=== PATIENT | female | born 1960 | race Caucasian/White ===

== ENCOUNTER 2025-03-12 18:36 | Inpatient (IN) | payer OTHER, SELFPAY ==
[2025-03-12 18:46] VITALS: BP 105/57; BMI 44.8
[2025-03-12 20:10] VITALS: BMI 44.8
--- NOTE | 2025-03-12 20:11 | HPS.HSE ---
Addendum entered and electronically signed by Omar Oglesby MD 03/13/25 08:09:
I saw and examined the patient.
The SLEEP TECH or PA's note was reviewed and I agree with the note.
Comment:
64F TF from [facility] s/p Cath found to have multi vessel CAD: Consult CTS and CBC card for CABG
PMHX:
HX Coronary Artery Disease
Combined Systolic and Diastolic Heart Failure
Diabetes Mellitus, Type II
Essential Hypertension
Hyperlipidemia
Pulmonary Embolism
Obstructive Sleep Apnea
Morbid Obesity due to Excess Calories
Breast Cancer
PE:
Morbidly obese
NAD
Supple neck, no JVD
Clear to auscultation
RRR S1 S2 No mumur
Obese benign abdo
B/L LE Edema
Impression/Plan
-
MV CAD s/p cardiac cath at OSH
-Consult CTS and CBC card to eval for CABG
Acute Combined Systolic and Diastolic Heart Failure
-Consult Cardiology
-Continue Lasix and Metolazone
-Continue Entresto
E. coli Urinary Tract Infection
-c/w [employer] IV CFTZ
Hepatitis C Screen Positive
- obtain RNA results from [facility]
Diabetes Mellitus, Type II
-Hold OHG agents
- Check HgbA1c
- ISS
Essential Hypertension
- on metoprolol
Hyperlipidemia
- on atorvastatin
Anemia, patient reports chronic
-Patient received dose of IV Venofer at [facility]
-Continue vitamin b12 supplement
MONICA HX
-reports non-compliance with CPAP
Morbid Obesity due to Excess Calories
Hx Pulmonary Embolism, possible provoked in setting of breast cancer
-Patient reports stopping Xarelto on her own in 2019
Hx Breast Cancer s/p Bilateral Mastectomy 2011
DVT Px: SQH
Fullcode
IVU
Original Note:
Family Physician
-
Family Physician: Huyen Barnett
Chief Complaint
-
Multivessel CAD
History of Present Illness
Patient is a 64 y/o female past medical history of hypertension and diabetes mellitus who initially presented to [facility] on March 09 with shortness of breath. Patient was found new acute heart failure. Patient had echocardiogram
which revealed reduced EF. Today she underwent cardiac catheterization which revealed multivessel coronary artery disease. She was transferred to [facility] for CT surgery evaluation. Patient reports at this time her shortness of breath
is improving, but she continues with lower extremity edema. She denies any chest pain.
Reviewed of records from [facility] also indicated patient was seen by Hematology due to profound anemia which was felt to multifactorial related to iron and vitamin b12 deficiency following gastric bypass. Patient was also evaluated by
Gastroenterology due to elevated LFTs. It was felt this was most likely related to hepatic congestion due to heart failure however patient's Hepatitis C screen was noted to be positive; Hepatitic C RNA was still pending at transfer. Patient was also
found to have a urinary tract infection for which she has been receiving ceftriaxone.
Medical History
Past Medical History
Past Medical History: Reports Other
Additional Past Medical History:
Coronary Artery Disease
Combined Systolic and Diastolic Heart Failure
Diabetes Mellitus, Type II
Essential Hypertension
Hyperlipidemia
Pulmonary Embolism
Obstructive Sleep Apnea
Morbid Obesity due to Excess Calories
Breast Cancer
Past Surgical History: Reports Other
Additional Past Surgical History:
Bilateral Mastectomy - 2011
Gastric Bypass - 2004
Social History
Tobacco: Former Smoker (Quit in 1991)
Alcohol: Other (Patient reports bouts of alcohol abuse, but no alcohol since 2020)
Family History
Family History: Other (Mother: Diabetes, CAD)
Allergies / Home Medications
Allergies reflects when Allergies were last updated in [employer].
Home Medications with original date entered in [employer]
Allergy/Medication List:
Medications on admission are unable to be verified or confirmed at this time.
If medication reconciliation has not been performed, why?: Medication List N/A
Review of Systems
-
A 12 point ROS was completed and negative except as noted: Yes
Constitutional: Denies Fever
Respiratory: Reports Trouble Breathing; Denies Cough
Cardiac: Denies Chest Pain or Palpitations
Physical Exam
Vital Signs
Selected Entries
03/12/25
18:46 03/12/25
18:46 03/12/25
21:00
Temp 98.2 F
Pulse 94
Resp Rate 18
Blood pressure 105/57
SaO2 100
Physical Exam
General: Comfortable, Conversant and Morbidly Obese
HEENT: Anicteric, Moist mucous membranes and Other (Very poor dentition)
Respiratory: Clear, Non Labored Respirations and Decreased Breath Sounds (Left base); No Rales
Cardiac: S1/S2 and Regular Rhythm; No Murmur
GI: Soft and Non Tender
Rectal: Deferred by Provider
Musculoskeletal: No Clubbing, No Cyanosis and Other (Pitting edema bilateral lower extremities)
Skin: Warm and Dry
Neuro: Awake, Alert, Oriented and Nonfocal/grossly intact
Psych: Calm
Laboratory Results
-
WBC 5.3
Hgb 8.6
Hct 28.4
Plt 305
Na 136
K 4.8
Vl 101
CO2 30
BUN 14
Cr 0.78
Glu 113
Cardiac Catheterization Mar 12, 2025: Severe triple vessel coronary artery disease with left anterior descending involvement.
Echocardiogram Mar 10, 2025: Moderate to severely dilated left atrium. Left ventricular size is mildly dilated. Grade II diastolic dysfunction. Left ventricular systolic function is moderately reduced with EF 35%.
Data Reviewed
-
Medical Tests (Nuc Med, Echo, EKG etc): Other (Echo, and Cardiac Cath reports)
Lab Data: Labs Reviewed by me
Old Records: Reviewed
Impression/Plan
-
Multivessel Coronary Artery Disease
-Consult CT Surgery
-Continue aspirin
Acute Combined Systolic and Diastolic Heart Failure
-Consult Cardiology
-Continue Lasix and Metolazone
-Continue Entresto
-Monitor Daily Weights
E. coli Urinary Tract Infection
-Continue ceftriaxone
Hepatitis C Screen Positive
-Attempt to obtain RNA results from [facility]
Diabetes Mellitus, Type II
-Hold oral meds
-Check HgbA1c
-Consider starting Farxiga
-Monitor sugars and continue coverage insulin
Essential Hypertension
-Continue metoprolol
Hyperlipidemia
-Continue atorvastatin
Anemia, patient reports chronic
-Patient received dose of IV Venofer at [facility]
-Continue vitamin b12 supplement
Obstructive Sleep Apnea
-Patient reports non-compliance with CPAP - Will need outpatient evaluation
Morbid Obesity due to Excess Calories
-Affects all aspects of care
Hx Pulmonary Embolism, possible provoked in setting of breast cancer
-Patient reports stopping Xarelto on her own in 2019
Hx Breast Cancer s/p Bilateral Mastectomy 2011
DVT proph: SC Heparin
Code Status: Full Code
[2025-03-12 20:59] LABS: Glucose - Point of Care 165 mg/dl (70-99)
[2025-03-12] MEDS: ROCEPHIN 1000 MG IV (22:20)
[2025-03-12] MEDS: STERILE WATER FOR INJECTION 10 ML IV (22:20)
[2025-03-12 22:59] VITALS: BP 128/58
[2025-03-12 23:03] LABS: Glucose - Point of Care 220 mg/dl (70-99)
[2025-03-13] VITALS (9 sets, daily range): BP systolic 119–153; BP diastolic 59–107; BMI 44.4
[2025-03-13] MEDS: HEPARIN 5000 UNITS SC ×4 (00:31→23:00)
[2025-03-13 04:59] LABS: ALT (SGPT) 26 U/L (0-35); AST (SGOT) 23 U/L (14-36); Albumin 2.7 g/dl (3.5-5.0); Alkaline Phosphatase 266 U/L (38-126); Blood Urea Nitrogen 15 mg/dl (7-17); Calcium 7.3 mg/dl (8.4-10.2); Carbon Dioxide 30 mmol/L (22-30); Chloride 100 mmol/L (98-107); Estimated Creatinine Clearance 101 ml/min; Glucose 125 mg/dl (70-99); HDL Cholesterol 32 mg/dl; Iron 239 ug/dl (37-170); LDL Cholesterol, Calculated 118 mg/dl; Magnesium 1.6 mg/dl (1.6-2.3); Potassium 4.6 mmol/L (3.5-5.1); Sodium 132 mmol/L (135-145); Total Protein 6.1 g/dl (6.3-8.2); Very Low Density Lipoprotein 26 mg/dl (0-30); eGFR > 60.00
[2025-03-13 05:01] LABS: Hematocrit 26.8 % (37.0-47.0); Hemoglobin 8.0 g/dL (12.0-16.0); Mean Corp Hgb Conc. 29.9 g/dL (33.0-37.0); Mean Corpuscular Volume 73.0 fL (81.0-99.0); Platelet Count 302 10^3/uL (130-400); Red Cell Dist. Width 25.6 % (11.5-14.5)
[2025-03-13 05:08] LABS: Total Iron Binding Capacity 276 ug/dl (265-497)
--- NOTE | 2025-03-13 05:39 | PTCARENOTE ---
Pt NSR on monitor, VSS. Pt denies chest pain or any discomfort. Pt ambulates independently. CHF education provided. Pt instructed to use call pérez for help and when needs to ambulate. Call pérez within reach
[2025-03-13 05:48] LABS: Ferritin 62.4 ng/ml (11.1-264.0)
[2025-03-13 06:19] LABS: Folate 7.8 ng/ml (2.76-20); Vitamin B12 447 pg/ml (239-931)
[2025-03-13 07:42] LABS: Glucose - Point of Care 132 mg/dl (70-99)
[2025-03-13 07:57] LABS: Glycohemoglobin (HgbA1c) 6.4 % (4.0-5.9)
--- NOTE | 2025-03-13 08:31 | CON.CAR ---
Addendum entered and electronically signed by Red Julien MD 03/13/25 13:49:
I saw and evaluated the patient, and I provided the substantive portion of the medical decision making.
I reviewed and agree with the note by KANWAL Dominguez and it accurately reflects our care.
I personally performed the medical decision making of the this encounter and my assessment and plan is below:
HFrEF, now compensated, normal PA pressure, normal RA pressure, normal PCWP at cath
Ischemic cardiomyopathy with moderate LV systolic dysfunction
Severe 3 V CAD wtih prox LAD involvement
DM
Anemia
Prior gastric surgery for obesity, peak weight over 400 pounds
Hgb 8, HgbA1c 6.4, Cr 0.7
Echo here today: LV dilated, LVEF 30-35%, valves ok
EKG ordered
Agree with plans for CABG evaluation
Original Note:
Consultation
Consultation Request
Date/Time Consultation Requested: 03/12/2025 22:00
Date/Time Consultation Performed: 03/13/2025 08:30
Requesting Provider: Alyssa Landa PA-C
Performing Provider: KANWAL Dominguez for Dr. Julien
Reason for Consultation: Acute HFrEF, MV CAD
Medical History
-
Chief Complaint: Shortness of breath
History of Present Illness:
Trish Chavarria is a 64-year-old female with breast cancer status post bilateral mastectomy (2011), hypertension, type 2 diabetes mellitus, and former smoker who presented to [facility] on 03/09/2025 with a chief complaint of shortness of
breath. She was diagnosed with acute heart failure. This was a new diagnosis for her. Echocardiogram revealed reduced LVEF (35%). Diuresis was initiated. This prompted cardiac catheterization which revealed multivessel coronary artery disease.
She was transferred to [facility] for CT surgery evaluation. She currently denies chest pain and improving shortness of breath.
During her hospitalization at [facility], she was also seen by hematology due to anemia. This was found to be in the setting of iron and B12 deficiency status post gastric bypass. Her elevated LFTs were evaluated by the GI service. This was related to
hepatic congestion in the setting of acute heart failure. Her hep C screen was found to be positive. Her hospitalization was also notable for treatment of a UTI.
Past Medical History
Past Medical History: CAD (MV CAD), Cancer (Breast), CHF (HFrEF), HTN, Hypercholesterolemia, NIDDM and Other (MONICA, PE)
Past Surgical History: Other (Gastric bypass, bilateral mastectomy)
Social History
Tobacco: Former Smoker
Alcohol: Former (Sober since 2020)
Family History
Family History: Other (Both parents due to CVAs)
Allergies / Home Medications
Allergy/AdvReac Type Severity Reaction Status Date / Time
strawberry Allergy Rash Verified 03/12/25 20:52
Review of Systems
-
All other systems: Negative unless noted
Constitutional: No Symptoms
EENT: No Symptoms
Respiratory: No Symptoms
Cardiac: No Symptoms
Abdomen/GI: No Symptoms
: No Symptoms
Musculoskeletal: Edema
Skin: No Symptoms
Neurological: No Symptoms
Endocrine: No Symptoms
Hematologic/Lymphatic: No Symptoms
Physical Exam
Vital Signs
Temp Pulse Resp BP Pulse Ox
98.3 F 89 18 128/58 100
03/13/25 07:40 03/13/25 07:40 03/13/25 07:40 03/12/25 22:59 03/13/25 07:40
Lab Results
03/13/25 04:28
03/13/25 04:22
Physical Exam
General: Well Developed, Well Nourished, No Apparent Distress and Comfortable
HEENT: Normocephalic, Anicteric and Moist Mucous Membranes
Respiratory: Clear and Non Labored Respirations
Cardiac: S1/S2, Regular Rhythm and Peripheral Edema
Breast: Deferred by me
GI: Soft, Non Tender, Non Distended and Normal Bowel Sounds
Rectal: Deferred by Provider
Genito-urinary: No Costovertebral Tender
Musculoskeletal: No Clubbing and No Cyanosis
Skin: Warm and Dry
Neuro: AO x 3
Hematologic/Lymphatic: No Lymphadenopathy
Psych: Calm
Impression / Plan
-
I/P: 64F with breast cancer status post bilateral mastectomy (2011), hypertension, type 2 diabetes mellitus, and former smoker who presented to [facility] on 03/09/2025 with a chief complaint of shortness of breath -> new HFrEF -> cardiac
catheterization with multivessel CAD.
Primary market research specialist:
HFrEF (LVEF 35%), acute
Ischemic cardiomyopathy
- RHC with wedge consistent with compensated HF, this is likely her dry weight (117kg)
- Transition to oral diuretic and stop metolazone
- GDMT as tolerated:
-SOL/ARB/ARNI: Sacubitril�valsartan 24-[address] surgery evaluation
-SGLT2 inhibitor: Case management to carvalho, hold with CT surgery evaluation
-Aldosterone agonist: Consider the addition of spironolactone after CT surgery evaluation
-Beta jonathan: Metoprolol succinate 25 mg daily
-Isosorbide/Hydralazine:�Hold for now
-ICD:
- Trend daily weight, I/O, and BMP with diuresis
- Heart failure education during her hospitalization
Bilateral lower extremity edema
- Compensated based on RHC
- Perhaps an element of chronic venous insufficiency, she would benefit from bilateral lower extremity compression
Coronary artery disease, multivessel
- Reports cardiac catheterization in the without disease
- Chest pain-free
- CT surgery evaluation
- TC 176, LDL 118, HDL 32, TG 130, she was started on atorvastatin 80 mg, goal LDL <55
UTI, acute, on IV antibiotics, per primary service
Type 2 diabetes mellitus
- Controlled, HgbA1c 6.4%
Obesity, BMI 44
- She would benefit from weight loss, affects all aspects of care
- Prior gastric bypass (2004)
- Consider the addition of GLP-1
Anemia
- In the setting of depleted iron stores (received Venofer) and B12 deficiency
- Evaluated by hematology at [facility]
Dyslipidemia, as above
MONICA with CPAP noncompliance
Prior PE, unclear provoked versus unprovoked as she had breast cancer, self discontinued rivaroxaban in 2019
Breast cancer status post bilateral mastectomy 2011
DATA:
Transthoracic echocardiogram, 03/12/2025 ([facility])
LVEF 35%. LA is moderate to severely dilated. RA is mildly dilated.
No mitral stenosis. Mild mitral regurgitation.
Trivial to mild TR.
Aortic valve is suboptimally visualized but is likely trileaflet.
Physiologic pericardial effusion.
Cardiac catheterization, 03/12/2025 ([facility], Dr. Holley):
Severe triple-vessel CAD with pLAD involvement in a diabetic patient with moderate to severely depressed LVEF.
Ideally target should include LAD, major diagonal branch, large inferior lateral marginal branch, and right coronary PDA.
Data Reviewed
-
EKG: Report Reviewed by me
Medical Tests (Nuc Med, Echo etc): Report Reviewed by me
Labs: Labs Reviewed by me
Old Records: Reviewed
[2025-03-13] MEDS: NOVOLOG FLEXPEN-LOW RESISTANCE SC ×2 (08:34→12:52)
[2025-03-13] MEDS: KCL 20 MEQ PO ×2 (08:39→20:37)
[2025-03-13] MEDS: LASIX 40 MG IV (08:39)
[2025-03-13] MEDS: ZAROXOLYN 5 MG PO (08:39)
[2025-03-13] MEDS: TOPROL XL 25 MG PO (08:39)
[2025-03-13] MEDS: VITAMIN B-12 1000 MCG PO (08:39)
[2025-03-13] MEDS: ASPIR LOW (ENTERIC COATED) 81 MG PO (08:39)
[2025-03-13] MEDS: COLACE 100 MG PO (08:39)
[2025-03-13] MEDS: VENTOLIN NEBULES 2.5 MG INH (11:38)
--- NOTE | 2025-03-13 11:58 | PTCARENOTE ---
Pt is AOx3, no complaints of pain or discomfort. Pt went for US and ct scan this AM. SR on tele monitor, VSS. Call pérez within reach.
[2025-03-13 12:47] LABS: Glucose - Point of Care 129 mg/dl (70-99)
--- NOTE | 2025-03-13 13:03 | CONSULT.CT ---
Addendum entered and electronically signed by Lorelei Trejo MD 03/14/25 21:30:
I have seen and evaluated the patient, agree with documentation below.
Ms. Chavarria is a 64 yo female with significant history of morbid obesity s/p RNY gastric bypass (failed), DM which she has not been on medications for, HTN (not taking medications), CKD and MONICA who is presenting with significant SOB and fatigue. LHC
was perfored at [facility] which is notable for severe multivessel CAD and acute on chronic HF exascerbation. She was admitted for HF exacerbation and treated with diuresis with reported 10L off. She additionally is noted to have significant anemia without
history of GI bleed, thought to potentially be related to RNY with deficiencies. She is sent over for CABG evaluation. Further workup here reveals significantly decreased PFTs specifically DLCO, Pulmonary has evaluated and determined this is all
related to her habitus and MONICA without any intrinsic pulmonary disease or dysfunction that could be further optimized. I have reviewed her LHC and agree there is significant disease throughout with TEAMCENTER SOLUTION ARCHITECT of RCA that is well collateralized and
significant LAD, diagonal and circumflex disease. TTE performed here notes decreased EF at 30% with global hypokinesis and normal valves. She remains significantly edematous in her BLE and has BNP here that is 19,000 (reportedly only 2,000 at [facility]).
She is chest pain free at this time. I am not clear that her symptoms are stemming from her CAD given other multiple potential causes of SOB and fatigue including the acute untreated HF, significant pulmonary dysfunction and chronic anemia. Her STS
risk for CABG is elevated given her multiple comorbidites and I believe she carries significant risk from a pulmonary standpoint. I would like to better optimize her from HF standpoint with more aggresive diureses (Lasix gtt) with Dozier catheter
placement for close monitoring. I will have my partner(s) review her case so that we may offer best treatment strategy given the increased operative risk and somewhat nonspecific symptoms as her SOB and fatigue may be related to one of her other
current conditions. We will continue to monitor closely and continue having ongoing discussions with the patient as we reach a shared decision.
Original Note:
Consultation
-
Date/Time Consultation Requested: 03/12/25
Date/Time Consultation Performed: 03/13/25
Requesting Provider: Alyssa Landa PA-C
Performing Provider: KANWAL Brown for Dr. Lorelei Trejo
Reason for Consultation: CABG Evaluation
Patient History
Physicians
Family Physician: none
Outpatient Associate Professor Of Criminal Justice: none
Inpatient Associate Professor Of Criminal Justice: [facility]
History of Present Illness
Ms Trish Chavarria is 64 year-old female with a known PMHx of breast ca s/p B/L mastectomy without chemo/radiation (2011), HTN, CKD, MONICA, T2DM (A1C 6.4%), provoked, PE (2011 previously on Xarelto, stopped on own in 2019), ETOH misuse (denied since
2020), Former tobacco use (from age 8 to ~), and gastric bypass (2011) who has lost follow-up with her primary medical team since 2019 and presented to [facility] on 03/09/25 with complaints of progressive shortness of breath.
Upon evaluation at [facility], TTE showed new HFrEF (35%) with pro-BNP of 2190. She was diuresed with lasix and metolazone and recommended to be initiated on Entresto. She underwent a C showing multi-vessel CAD in which she was transferred for CABG
evaluation. Prior to her transfer from [facility], she was found to be anemic and was given IV Venofer and initiated on B12 supplementation at [facility]. GI was consulted for elevated LFT's in which she obtained a hepatic US which showed hepatic congestion
secondary to acute HF. She was further found to have E.Coli UTI and initiated on antibiotics.
Ms Chavarria reports that she lives at home with her spouse. She is currently independent with her ADL's but has limitations due to her dyspnea. She reports that over the last few weeks, she has been unable to walk or grocery shop secondary to
shortness of breath that will alleviate at rest. She further reports bilateral lower extremity edema and avoidance of physical exertion (carrying laundry basket) to avoid onset of symptoms.
Past Medical History
Past Medical History: CHF, RUSHING, HTN, NIDDM, MONICA, Renal Failure and SOB
Past Surgical History
Past Surgical History: Abdominal (Gastric Bypass 2011) and Mastectomy (Bilateral)
Dental History
Edentulous.
Social History
Alcohol: Former
Drug: None
Tobacco: Former Smoker
Personal:
Living: With Spouse
Allergies
Allergy/AdvReac Type Severity Reaction Status Date / Time
strawberry Allergy Rash Verified 03/12/25 20:52
Review of Systems
-
History Source: Patient
General: Reports No Symptoms
HEENT: Reports No Symptoms
Respiratory: Reports SOB
Cardiac: Reports Edema
Abdomen/GI: Reports Abdominal Pain
: Reports No Symptoms
Musculoskeletal: Reports Edema
Skin: Reports No Symptoms
Neurological: Reports No Symptoms
Physical Exam
Vital Signs
Temp 98.2 F 03/13/25 11:19
Temp route: Oral 03/13/25 11:19
Pulse 89 03/13/25 12:45
Rhythm: Normal sinus rhythm 03/13/25 09:41
Resp Rate 18 03/13/25 11:38
Blood pressure 123/67 03/13/25 11:27
Blood pressure extremity used: Right calf 03/13/25 11:19
Position: Lying 03/13/25 11:19
MAP (cuff-Johnathan Monitor) 84 03/13/25 11:27
SaO2 99 03/13/25 11:19
Oxygen Mode of Delivery Room air 03/13/25 11:19
Can the patient verbally communicate their pain? Yes 03/12/25 22:06
Actual Weight 117.2 kg 03/13/25 04:58
Body Mass Index (BMI) 44.4 03/13/25 04:58
Labs
03/13/25 04:28
03/13/25 04:22
Hemoglobin A1c 6.4 % (4.0-5.9) H 03/13/25 04:28
Exam
General: Well Developed, Well Nourished and Comfortable
HEENT: Normocephalic, Moist Mucous Membranes and PERRLA
Respiratory: Clear
Cardiac: S1/S2 and Regular Rhythm
GI: Soft, Non Tender and Normal Bowel Sounds
Skin: Warm and Dry
Neuro: Awake, Alert, Oriented and AO x 3
Extremities: Lower Level Edema
Psych: Calm
Assessment / Plan
-
#Multivessel Coronary Artery Disease
- Cardiac cath report received from [facility]. Awaiting Cardiac Coarse Wire Drawer films.
- Patient's case will be discussed with the attending physician. Further details regarding potential surgical intervention will be determined after attending physicians full examination.
- Routine preoperative cardiothoracic surgery orders initiated, including:
- T&S
- Cerebrovascular US
- B/L Vein Mapping
- CT Chest
- TTE
- PFT's with DLCO
- STS Risk stratification score will be calculated after preoperative testing is complete.
- Continue to hold following medications in anticipation for surgery:
- Entresto (placed on hold 03/12/25)
--- NOTE | 2025-03-13 14:21 | W.PN.UPDATE ---
Update Note
Progress Note Update
Unable to evaluate patient today
Patient was down in CT scan in the morning
attempted to see the patient again and currently patient down getting pulmonary function test
Discussed with RN and no medical complaints reported by patient
Will evaluate patient tomorrow in the morning
[2025-03-13 15:23] LABS: Troponin I 0.019 ng/ml
[2025-03-13 16:56] LABS: Glucose - Point of Care 158 mg/dl (70-99)
[2025-03-13] MEDS: LIPITOR 80 MG PO (17:10)
[2025-03-13] MEDS: NOVOLOG FLEXPEN-LOW RESISTANCE 1 UNITS SC (17:57)
[2025-03-13] MEDS: COLACE PO (20:37)
[2025-03-13 22:52] LABS: Glucose - Point of Care 123 mg/dl (70-99)
[2025-03-13] MEDS: STERILE WATER FOR INJECTION 10 ML IV (23:00)
[2025-03-13] MEDS: ROCEPHIN 1000 MG IV (23:00)
[2025-03-14] VITALS (7 sets, daily range): BP systolic 109–147; BP diastolic 56–108; BMI 43.5
[2025-03-14 05:20] LABS: INR 1.06; PT 14.1 Sec (11.4-14.6)
[2025-03-14 05:21] LABS: APTT 29.4 Sec (23.4-35.0)
[2025-03-14 05:29] LABS: ALT (SGPT) 26 U/L (0-35); AST (SGOT) 26 U/L (14-36); Albumin 3.0 g/dl (3.5-5.0); Alkaline Phosphatase 270 U/L (38-126); Blood Urea Nitrogen 13 mg/dl (7-17); Calcium 7.0 mg/dl (8.4-10.2); Carbon Dioxide 27 mmol/L (22-30); Chloride 101 mmol/L (98-107); Estimated Creatinine Clearance 101 ml/min; Glucose 110 mg/dl (70-99); Potassium 4.0 mmol/L (3.5-5.1); Sodium 132 mmol/L (135-145); Total Protein 6.7 g/dl (6.3-8.2); eGFR > 60.00
[2025-03-14 05:57] LABS: Hematocrit 28.8 % (37.0-47.0); Hemoglobin 8.4 g/dL (12.0-16.0); Mean Corp Hgb Conc. 29.2 g/dL (33.0-37.0); Mean Corpuscular Volume 75.0 fL (81.0-99.0); Platelet Count 377 10^3/uL (130-400); Red Cell Dist. Width 25.6 % (11.5-14.5)
[2025-03-14] MEDS: NOVOLOG FLEXPEN-LOW RESISTANCE SC ×3 (08:42→17:00)
[2025-03-14 08:43] LABS: Glucose - Point of Care 134 mg/dl (70-99)
[2025-03-14] MEDS: COLACE PO ×2 (08:43→19:28)
[2025-03-14] MEDS: LASIX 40 MG PO (08:44)
[2025-03-14] MEDS: KCL 20 MEQ PO ×2 (08:44→19:28)
[2025-03-14] MEDS: ASPIR LOW (ENTERIC COATED) 81 MG PO (08:44)
[2025-03-14] MEDS: VITAMIN B-12 1000 MCG PO (08:44)
[2025-03-14] MEDS: TOPROL XL 25 MG PO (08:44)
[2025-03-14] MEDS: HEPARIN 5000 UNITS SC ×2 (08:44→16:20)
--- NOTE | 2025-03-14 09:21 | W.PN.CD ---
Today's Communication / Plan
-
CABG eval
Impression / Plan
-
I/P: 64F with breast cancer status post bilateral mastectomy (2011), hypertension, type 2 diabetes mellitus, and former smoker who presented to [facility] on 03/09/2025 with a chief complaint of shortness of breath -> new HFrEF -> cardiac
catheterization with multivessel CAD.
Primary copy operator: [facility]
HFrEF (LVEF 30-35%), acute, improved s/p IV lasix
Ischemic cardiomyopathy without significant valve disease
- RHC with wedge consistent with compensated HF, likely at her dry weight, currently 115 kg
- lasix 40mg PO daily
- GDMT as tolerated:
-SOL/ARB/ARNI: Sacubitril�valsartan 24-[address] surgery evaluation
-SGLT2 inhibitor: Case management to ashley, hold with CT surgery evaluation
-Aldosterone agonist: Consider the addition of spironolactone after CT surgery evaluation
-Beta jonathan: Metoprolol succinate 25 mg daily
-Isosorbide/Hydralazine:�Hold for now
-ICD: eval LVEF 90 days post CABG
Coronary artery disease, multivessel, severe
- CT surgery evaluation: CABG evaluation
-morbid obesity increases her surgical risk
- TC 176, LDL 118, HDL 32, TG 130, she was started on atorvastatin 80 mg, goal LDL <55
Type 2 diabetes mellitus
- Controlled, HgbA1c 6.4%
Obesity, BMI 44
- She would benefit from weight loss, affects all aspects of care
- Prior gastric bypass (2004)
- Consider the addition of GLP-1 post op
Anemia
- In the setting of depleted iron stores (received Venofer) and B12 deficiency
- Evaluated by hematology at [facility]
Dyslipidemia, as above
MONICA with CPAP noncompliance
Prior PE, unclear provoked versus unprovoked as she had breast cancer, self discontinued rivaroxaban in 2019
Breast cancer status post bilateral mastectomy 2011
DATA:
Cardiac catheterization, 03/12/2025 ([facility], Dr. Holley):
Severe triple-vessel CAD with pLAD involvement in a diabetic patient with moderate to severely depressed LVEF.
Ideally target should include LAD, major diagonal branch, large inferior lateral marginal branch, and right coronary PDA.
Physical Exam
Vital Signs/Labs
Vital Signs
Temp Pulse Resp BP Pulse Ox
97.8 F 80 20 138/67 98
03/14/25 07:32 03/14/25 08:44 03/14/25 07:32 03/14/25 08:44 03/14/25 07:32
03/13/25 03/14/25 03/15/25
06:59 06:59 06:59
Actual Weight 117.2 kg 114.8 kg
03/14/25 04:10
03/14/25 04:10
PT 14.1 Sec (11.4-14.6) 03/14/25 04:10
INR 1.06 03/14/25 04:10
APTT 29.4 Sec (23.4-35.0) 03/14/25 04:10
Magnesium 1.6 mg/dl (1.6-2.3) 03/13/25 04:22
Triglycerides 130 mg/dl (10-149) 03/13/25 04:22
LDL Cholesterol, Calc 118 mg/dl 03/13/25 04:22
VLDL Cholesterol, Calc 26 mg/dl (0-30) 03/13/25 04:22
HDL Cholesterol 32 mg/dl 03/13/25 04:22
03/13/25
14:47
[id number] Pept 28921
LAB Results
03/13/25
14:47
Troponin I 0.019
Physical Exam
Constitutional: No acute distress and Comfortable
EENT: Moist mucous membranes
Cardiovascular: Rhythm & rate is regular, Systolic murmur absent, Pedal edema present and JVD present
Respiratory: Respiratory effort normal and Other (poor air movement)
Neuro/Psych: AO x 3
Data Reviewed
-
Date of Service: March 14, 2025
EKG: Other (Tele: SR 80s)
Echo: Report Reviewed by me (EF 30-35%, no sig valve disease)
Labs: Labs Reviewed by me
--- NOTE | 2025-03-14 09:40 | CM ---
spoke to pt in room, she lives with her in a 1 story home with 12 steps to enter. she is prev indep, uses a rolling walker. has a CPAP but does not use it. she denies any dc planning needs. plan is for dc to home when medically stable.
[2025-03-14 10:00] LABS: Venous Blood Gas B.E. 4.4 mmol/L (-4 to +4); Venous Blood Gas O2 Sat % 97.0 %
--- NOTE | 2025-03-14 11:37 | CON.PUL ---
Consultation
Consultation Request
Date/Time Consultation Requested: 03/14/2025
Date/Time Consultation Performed: 03/14/2025
Medical History
-
Chief Complaint: Shortness of breath
History of Present Illness:
Patient is a very pleasant 64-year-old female with history of hypertension, diabetes and mild intermittent asthma who presented to [facility] on March 09 with worsening dyspnea. Patient was noted to be volume overloaded with bilateral
pitting edema and was diagnosed with a congestive heart failure. Patient subsequently had a cardiac catheterization which showed reported multivessel coronary artery disease and was subsequently transferred to [facility] for consideration
for surgical revascularization. Patient since has been on diuresis and medical management with gradual improvement. In preparation for coronary artery bypass graft, patient had pulmonary function testing performed which was suggestive of moderate
risk traction with decreased diffusion capacity. Pulmonary consultation was requested for further input.
Past Medical History: Reports Other
Additional Past Medical History:
Coronary Artery Disease
Combined Systolic and Diastolic Heart Failure
Diabetes Mellitus, Type II
Essential Hypertension
Hyperlipidemia
Pulmonary Embolism
Obstructive Sleep Apnea
Morbid Obesity due to Excess Calories
Breast Cancer
Reported history of allergy to cats, pollen and mold.
Past Surgical History: Reports Other
Additional Past Surgical History:
Bilateral Mastectomy - 2011
Gastric Bypass - 2004
Social History
Tobacco: Former Smoker (Quit in 1991). Patient smoked from age 8 up until age 31, 1 to 2 packs/day. Has not smoked in 33 years. Remote use of marijuana, none currently. No history of vaping or e-cigarette use. 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
Alcohol: Other (Patient reports bouts of alcohol abuse, but no alcohol since 2020)
Family History
Family History: Other (Mother: Diabetes, CAD)
Allergies / Home Medications
Allergies
Allergy/AdvReac Type Severity Reaction Status Date / Time
strawberry Allergy Rash Verified 03/12/25 20:52
Review of Systems
-
Hematologic/Lymphatic: Other (All 14 systems reviewed and negative except as stated above in the history of present illness.)
Vitals / Labs / Diagnostic Testing
Vital Signs
Temp Pulse Resp BP Pulse Ox
97.8 F 77 16 138/67 100
03/14/25 11:13 03/14/25 11:13 03/14/25 11:13 03/14/25 08:44 03/14/25 11:13
Lab Data
03/14/25 04:10
03/14/25 04:10
Laboratory Results
03/14/25
04:10
PT 14.1
INR 1.06
APTT 29.4
Microbiology
03/13/25 04:22 Nose MRSA Screen - Final
No Methicillin Resistant Staphylococcus aureus isolated.
Diagnostic Testing:
Physical Exam
-
HEENT: Normocephalic
Cardiovascular: S1/S2 and Peripheral Edema (2-3+ bilaterally)
Respiratory: Clear
GI: Soft and Non Distended
Neurology: Awake and Alert
Skin: Warm
General: Comfortable
Assessment
-
#1. Restrictive lung disease
- Pulmonary function testing reviewed, suggestive of moderate restrictive lung disease with decreased FEV1 and TLC. Diffusion capacity corrected also reduced. No evidence of interstitial lung disease noted on review of CT scan. Echocardiogram
reviewed, normal pulmonary artery pressures. Patient is not anemic. Suspect the restriction is extrapulmonary due to morbid obesity
- Corrected DLCO is low which I suspect is related to atelectasis in the left lower lobe as well as small pleural effusion and congestive heart failure rather than any pulmonary parenchymal or pulmonary vascular disease.
- FEV1/FVC normal, no wheezing on exam, patient is saturating well on room air.
- Patient is certainly at high risk of complications due to morbid obesity, restrictive lung disease as well as history of mild intermittent asthma. However, there is no acutely modifiable factors that will lower her operative risk, can proceed
with needed coronary artery bypass graft surgery. Continue to diurese to optimize intravascular volume status, patient currently quite volume overloaded with 3+ bilateral pitting edema.
- Patient at risk of developing worsening hypercapnia postsurgery, recommend end-tidal CO2 monitoring and minimizing sedating medications
- Will check overnight oximetry to evaluate for any nocturnal hypoxemia
- Low threshold to extubate patient to BiPAP. Pulmonary/roof slater team will continue to follow along
#2. MONICA, not on PAP therapy
- Reported history of diagnosis of obstructive sleep apnea more than 10 years ago. Patient reportedly did not tolerate PAP therapy and has not followed up with pulmonary or speech specialist since
- Recommend outpatient follow-up with pulmonary/sleep clinic, information added to DC section
-Currently saturating well on room air, check overnight oximetry to evaluate for nocturnal hypoxemia
#3. Chronic compensated hypercapnia, suspect OHS
- VBG reviewed, , consistent with chronic compensated hypercapnia, suspect related to obesity hypoventilation syndrome
- Check nocturnal oximetry on room air
- Patient will need outpatient follow-up with pulmonary clinic and a dedicated sleep study for further recommendations
- Check end-tidal CO2 post extubation and low threshold to extubate to BiPAP. Pulmonary/roof slater service will continue to follow along
- Minimize sedating medications.
#4. LLL atelectasis
- Suspect compressive atelectasis due to small left sided pleural effusion
- Obesity and extrapulmonary restriction also contributing
- Initiate incentive spirometry, sit in chair, activity as tolerated
- Outpatient follow-up with pulmonary clinic, will need a follow-up imaging to ensure resolution, if has persistent volume loss, will need endobronchial evaluation with bronchoscopy
#5. H/o Mild intermittent asthma
- Symptoms well-controlled, rare use of as needed albuterol.
- Patient denies any hospitalization, intubation or need for PAP therapy related to asthma
- Continue albuterol on an as needed basis
- Will check eosinophil count and IgE along with RAST panel as outpatient. Reported history of allergy to pollen, cats and mold etc.
#6. Morbid obesity, s/p gastric bypass surgery 2004
- Contributing to extrapulmonary restriction, obstructive sleep apnea and possibly obesity hypoventilation syndrome
Other medical diagnoses:
- Newly detected HFrEF, LVEF 30-35%, bilateral small pleural effusions. Currently on IV Lasix. Management per cardiology service.
- Multi-vessel CAD, currently being evaluated for CABG
- CA breast, s/p bilateral mastectomy in 2011 (No chemo or radiation)
- H/o PE in 12/2011, off Xarelto since 2019
- h/o HCV
Total time spent on this consultation/encounter _68___ minutes which includes review of history, physical exam, medications, laboratory data, personal review of imaging, extensive review of outpatient records, discussion with care team and
respiratory therapy.
Data:
PFT 03/2025: Spirometry without evidence of obstruction or bronchodilator response. Moderate restriction noted with TLC reduced at 51% of predicted and FEV1 reduced at 49% of predicted. Moderately reduced diffusion capacity at 46% of predicted
when corrected for alveolar volume.
ECHO 03/2025: 1. Mildly dilated LV. Moderately reduced LV systolic function, LVEF 30 to 35%. Global hypokinesis.
2. No significant valve disease.
3. No pericardial effusion.
4. No prior study available for comparison.
5. PASP 23 mm, normal RV
--- NOTE | 2025-03-14 11:46 | W.PN.HOSP.TC ---
Today's Communication/Plan
-
ongoing preop evaluation for CABG
day 3 of abx for uti
diuretics/GDMT per cards
Assessment / Plan
Assessment / Plan
Multivessel Coronary Artery Disease
-Diagnosed on [facility]
-Transferred to [place] for CT surgery evaluation for CABG
-Getting PFT/Carotid us/CT chest as part of pre-op evaluation
-Continue aspirin
Acute Combined Systolic and Diastolic Heart Failure
-cardiology following and help appreciated.
-Continue Lasix and Metolazone
-Continue Entresto
-follow up weight/cr
E. coli Urinary Tract Infection
-finish short course of rocephin, day 3 of abx today
Hepatitis C Screen Positive
-Attempt to obtain RNA results from [facility]
Diabetes Mellitus, Type II
-Hold oral meds
-HgbA1c of 6.1
-Consider starting Farxiga
-Monitor sugars and continue coverage insulin
Essential Hypertension
-Continue metoprolol
Hyperlipidemia
-Continue atorvastatin
Anemia, patient reports chronic
-Patient received dose of IV Venofer at [facility]
-Continue vitamin b12 supplement
Obstructive Sleep Apnea
-Patient reports non-compliance with CPAP - Will need outpatient evaluation
Morbid Obesity due to Excess Calories
-Affects all aspects of care
Hx Pulmonary Embolism, possible provoked in setting of breast cancer
-Patient reports stopping Xarelto on her own in 2019
Hx Breast Cancer s/p Bilateral Mastectomy 2011
DVT proph: SC Heparin
Code Status: Full Code
Anticipated Discharge: > 48 hours
Subjective/Interval History
-
Date of Service: March 14, 2025
denies of having any issues overnight
Objective Data
-
Labs:
Laboratory Results
03/14/25
04:10
WBC 8.1
Hgb 8.4 L
Hct 28.8 L
Plt Count 377 D
PT 14.1
INR 1.06
APTT 29.4
Sodium 132 L
Potassium 4.0
Chloride 101
Carbon Dioxide 27
BUN 13
Creatinine 0.7
Glucose 110 H
Calcium 7.0 L
Total Bilirubin 0.8
AST 26
ALT 26
Alkaline Phosphatase 270 H
Vital Signs:
Vital Signs
Temp Pulse Resp BP Pulse Ox
97.8 F 77 16 138/67 100
03/14/25 11:13 03/14/25 11:13 03/14/25 11:13 03/14/25 08:44 03/14/25 11:13
I&O
03/13/25 03/14/25 03/15/25
06:59 06:59 06:59
Intake Total 250 / 250 480 / 480
Balance 250 / 250 480 / 480
Review of Systems
-
Respiratory: Reports No Symptoms
Cardiac: Reports No Symptoms
Abdomen/GI: Reports No Symptoms
Physical Exam
-
General: Negative Appears in Distress
HEENT: Negative Oxygen
Neuro: Awake, Alert, Oriented and No Motor Deficits
[2025-03-14 12:51] LABS: Glucose - Point of Care 133 mg/dl (70-99)
[2025-03-14] MEDS: LASIX 40 MG IV (15:07)
[2025-03-14] MEDS: LASIX 50 IV (16:42)
[2025-03-14 16:54] LABS: Glucose - Point of Care 146 mg/dl (70-99)
[2025-03-14] MEDS: LIPITOR 80 MG PO (17:51)
--- NOTE | 2025-03-14 18:51 | PTCARENOTE ---
~[id number]: handoff repot received from nightshift RN. Pt Aox4, NSR 70s-80s, SBP 130s, patient BLE pink band so BPs taken on Lower extremities. RA satting 98%. R radial site UNIT LEADER and scabbed from previous cath. +2/+1 pulses, +2 pitting edema BLE and
+1 generalized edema noted. R midline CDI, no blood return at this time, site flushed. Bloodwork drawn and sent to lab per order. All needs met at this time, call pérez within reach.
~[id number]: Patient independent in room, OOB in chair at this time. VAT team in and redressed midline site, still no blood return at this time. All needs met, call pérez within reach.
~[id number]: Patient independent in room. PO lasix changed to IV. CTS in to see patient and discuss plan. Dozier inserted per order, clear urine output noted. Lasis gtt hung per order. I/Os charted. All needs met at this time, call pérez within reach.
~[id number]: Patient in bed with feet elevated for swelling. VSS. All needs met at this time, call pérez within reach. Handoff repot given to nightshift RN.
[2025-03-14 21:28] LABS: Blood Urea Nitrogen 16 mg/dl (7-17); Calcium 6.6 mg/dl (8.4-10.2); Carbon Dioxide 32 mmol/L (22-30); Chloride 98 mmol/L (98-107); Estimated Creatinine Clearance 100 ml/min; Glucose 129 mg/dl (70-99); Potassium 4.2 mmol/L (3.5-5.1); Sodium 132 mmol/L (135-145); eGFR > 60.00
[2025-03-14] MEDS: ROCEPHIN 1000 MG IV (21:57)
[2025-03-14] MEDS: STERILE WATER FOR INJECTION 10 ML IV (21:57)
[2025-03-14 22:02] LABS: Magnesium 1.5 mg/dl (1.6-2.3)
[2025-03-14 22:35] LABS: Glucose - Point of Care 135 mg/dl (70-99)
[2025-03-14] MEDS: MAGNESIUM SULFATE 50 IV (22:51)
[2025-03-14] MEDS: MAALOX 30 ML PO (22:51)
[2025-03-15] VITALS (7 sets, daily range): BP systolic 100–144; BP diastolic 46–101; BMI 42.7
[2025-03-15] MEDS: CALCIUM GLUCONATE 100 IV (00:35)
[2025-03-15] MEDS: HEPARIN 5000 UNITS SC ×4 (00:36→23:52)
--- NOTE | 2025-03-15 01:48 | PTCARENOTE ---
Tele remains NSR, HR in the 80-100's at rest. Patients Mag 1.5 and Calcium 6.6, Tsilina Jose Maria CHAVEZ aware. Orders obtained and carried out. See MAR for further details. Lasix gtt remains infusing at 1ml/hr. Ledezma draining clear yellow urine. T.
Jose Maria CHAVEZ instructed RN to maintain ledezma catheter for accurate output. Patient c/o 'pressure' and 'gas' in her chest. Jose Maria CHAVEZ at bedside. Patient received 30ml Maalox at 22:51. Assisted patient to the chair. Patient reports 'belching' and had
relief. Call pérez within reach.
[2025-03-15 05:20] LABS: Hematocrit 26.1 % (37.0-47.0); Hemoglobin 7.7 g/dL (12.0-16.0); Mean Corp Hgb Conc. 29.5 g/dL (33.0-37.0); Mean Corpuscular Volume 75.9 fL (81.0-99.0); Platelet Count 371 10^3/uL (130-400); Red Cell Dist. Width 24.8 % (11.5-14.5)
[2025-03-15 05:38] LABS: Blood Urea Nitrogen 15 mg/dl (7-17); Calcium 6.9 mg/dl (8.4-10.2); Carbon Dioxide 32 mmol/L (22-30); Chloride 99 mmol/L (98-107); Estimated Creatinine Clearance 86 ml/min; Glucose 116 mg/dl (70-99); HDL Cholesterol 37 mg/dl; LDL Cholesterol, Calculated 93 mg/dl; Magnesium 1.8 mg/dl (1.6-2.3); Potassium 4.1 mmol/L (3.5-5.1); Sodium 135 mmol/L (135-145); Very Low Density Lipoprotein 21 mg/dl (0-30); eGFR > 60.00
[2025-03-15] MEDS: ASPIR LOW (ENTERIC COATED) 81 MG PO (08:34)
[2025-03-15] MEDS: COLACE PO (08:34)
[2025-03-15] MEDS: KCL 20 MEQ PO ×2 (08:35→21:27)
[2025-03-15] MEDS: VITAMIN B-12 1000 MCG PO (08:36)
[2025-03-15] MEDS: NOVOLOG FLEXPEN-LOW RESISTANCE SC (08:37)
[2025-03-15] MEDS: TOPROL XL 25 MG PO (08:37)
[2025-03-15 08:38] LABS: Glucose - Point of Care 117 mg/dl (70-99)
--- NOTE | 2025-03-15 08:46 | PN.CDI ---
CDI
- -
CDI:
Physician Documentation Request
Admit Date: 03/12/25 18:36
Dear Doctor,
Patient admitted for CAD.
03/14 Cardiology PN: 'HFrEF (LVEF 30-35%), acute, improved s/p IV lasix'
03/14 Hospitalist PN: 'Acute Combined Systolic and Diastolic Heart Failure -cardiology following and help appreciated. -Continue Lasix and Metolazone'
Please provide further specificity regarding the most likely type of CHF you are evaluating, treating or monitoring.
Systolic
Combined systolic and diastolic
Other
Use of terms such as suspected, likely, concern for, or probable (associated with a specific diagnosis that is being evaluated, monitored, or treated as if it exists) are acceptable and can be coded in the inpatient setting, when documented at the
time of discharge.
Thank you,
Dannielle Moy RN, BSN
CDI Specialist
Available via [place] text
Please use your independent medical judgment in providing your response.
--- NOTE | 2025-03-15 08:48 | PTCARENOTE ---
Rec'd Pt A,A+OX3, denies pain, R radial puncture site ALYSSA, clean and dry. Pt has ledezma cath, draining large amt clear yellow urine. Pt sitting up at side of bed and has also been OOb to chair.
--- NOTE | 2025-03-15 09:11 | W.PN.CD ---
Today's Communication / Plan
-
nutritional workup
surgical planning
Impression / Plan
-
I/P: 64F with breast cancer status post bilateral mastectomy (2011), hypertension, type 2 diabetes mellitus, and former smoker who presented to [facility] on 03/09/2025 with a chief complaint of shortness of breath -> new HFrEF -> cardiac
catheterization with multivessel CAD.
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
HFrEF (LVEF 30-35%), acute, improved s/p IV lasix
Ischemic vs. mixed cardiomyopathy without significant valve disease
- degree of heart failure appears somewhat out of proportion to her coronary disease; reasonable to workup for nutritional etiologies given prior gastric bypass: B12 (normal), folate (normal), thiamine (pending), carnitine (pending), zinc (pending)
- RHC with wedge consistent with compensated HF, likely at her dry weight, currently 115 kg
- lasix 40mg PO daily to maintain euvolemia
- GDMT as tolerated:
-SOL/ARB/ARNI: Sacubitril�valsartan 24-[address] surgery evaluation
-SGLT2 inhibitor: Case management to carvalho, hold with CT surgery evaluation
-Aldosterone agonist: Consider the addition of spironolactone after CT surgery evaluation
-Beta jonathan: Metoprolol succinate 25 mg daily
-Isosorbide/Hydralazine:�Hold for now
-ICD: not currently indicated
Coronary artery disease, multivessel, severe
- CT surgery evaluation: CABG evaluation
- angiogram reviewed: 60% prox LAD lesion and serial moderate-severe disease in the LCx/RCA; complete revascularization would require VARGHESE-LAD, and additional grafts to distal LCx OM, RPDA, +/- diagonal. Some question as above as to whether her CAD
fully explains her CM. To this end, consideration of functional assessment of LAD disease may be valuable.
- morbid obesity increases her surgical risk
- TC 176, LDL 118, HDL 32, TG 130, she was started on atorvastatin 80 mg, goal LDL <55
Type 2 diabetes mellitus
- Controlled, HgbA1c 6.4%
Obesity, BMI 44
- She would benefit from weight loss, affects all aspects of care
- Prior gastric bypass (2004)
- Consider the addition of GLP-1 pending course, coverage
Anemia
- In the setting of depleted iron stores (received Venofer) and B12 deficiency
- Evaluated by hematology at [facility] and here
Dyslipidemia, as above
MONICA with CPAP noncompliance
Prior PE, unclear provoked versus unprovoked as she had breast cancer, self discontinued rivaroxaban in 2019
Breast cancer status post bilateral mastectomy 2011
DATA:
Cardiac catheterization, 03/12/2025 ([facility], Dr. Holley):
Severe triple-vessel CAD with pLAD involvement in a diabetic patient with moderate to severely depressed LVEF.
Ideally target should include LAD, major diagonal branch, large inferior lateral marginal branch, and right coronary PDA.
Physical Exam
Vital Signs/Labs
Vital Signs
Temp Pulse Resp BP Pulse Ox
37.0 C 89 20 100/46 97
03/15/25 06:56 03/15/25 06:00 03/15/25 06:56 03/15/25 02:34 03/15/25 06:56
03/14/25 03/15/25 03/16/25
06:59 06:59 06:59
Actual Weight 114.8 kg 112.7 kg
03/15/25 04:47
03/15/25 04:47
PT 14.1 Sec (11.4-14.6) 03/14/25 04:10
INR 1.06 03/14/25 04:10
APTT 29.4 Sec (23.4-35.0) 03/14/25 04:10
Magnesium 1.8 mg/dl (1.6-2.3) 03/15/25 04:47
Triglycerides 106 mg/dl (10-149) 03/15/25 04:47
LDL Cholesterol, Calc 93 mg/dl 03/15/25 04:47
VLDL Cholesterol, Calc 21 mg/dl (0-30) 03/15/25 04:47
HDL Cholesterol 37 mg/dl 03/15/25 04:47
03/13/25
14:47
Aok-[id number]-Efrboejwvhu Pept [id number]
LAB Results
03/13/25
14:47
Troponin I 0.019
Physical Exam
Constitutional: Comfortable
Cardiovascular: Rhythm & rate is regular and Pedal edema is absent
Respiratory: Respiratory effort normal
Neuro/Psych: AO x 3
Data Reviewed
-
Date of Service: March 15, 2025
Medical Decision Making: Reviewed Test Results
EKG: Tracing Personally Visualized and interpreted
Echo: Tracing Personally Visualized and interpreted
X-Ray/CT/US/MRI/NUC/PET: Image Personally Visualized and interpreted
Medical Tests (PFT, Pathology etc): Image Personally Visualized and interpreted
Labs: Labs Reviewed by me
[2025-03-15] MEDS: MAALOX 30 ML PO (09:48)
--- NOTE | 2025-03-15 10:55 | CON.ONC ---
Addendum entered and electronically signed by Melissa Hernandez MD 03/17/25 09:36:
IV iron was ordered for ferritin < 100
Hematology will sign off. Please call with questions.
Original Note:
Consultation
-
Date Consultation Requested: 03/15/25
Date Consultation Performed: 03/15/25
Impression
Impression
Chronic microcytic anemia
Submassive pulmonary embolus 2011 previously recommended to have lifelong Xarelto
Iron deficiency anemia
DCIS 2011
Plan
Plan
Patient has previously received parenteral iron resuscitation
patient had followed with [place] [facility] in 06/2017
Suspect there may be component of micronutrient insufficiency
Agree with your to test add copper level to the micronutrient panel ordered
When reviewing her CBCs dating back to 2011 microcytosis has always been an indicator of iron deficiency she is more microcytic now than on previous occasions
Recommend parenteral iron for ferritin < 100 with congestive heart failure preparation for cardiac surgery
DVT prophylaxis
Patient History
History of Present Illness
Patient is a very pleasant 64-year-old female with history of hypertension, diabetes and mild intermittent asthma who presented to [facility] on March 09 with worsening dyspnea. Patient was noted to be volume overloaded with bilateral
pitting edema and was diagnosed with a congestive heart failure. Patient subsequently had a cardiac catheterization which showed reported multivessel coronary artery disease and was subsequently transferred to [facility] for consideration
for surgical revascularization. Patient since has been on diuresis and medical management with gradual improvement. Patient has had chronic anemia presumably secondary to deficiencies associated with gastric bypass surgery. She reports no melena
or red blood per rectum. She has been chronically anemic for years and has previously seen [facility] for parenteral supplementations of iron.
Past-Medical/Surgical History
Past Medical History
Coronary Artery Disease
Combined Systolic and Diastolic Heart Failure
Diabetes Mellitus, Type II
Essential Hypertension
Hyperlipidemia
Pulmonary Embolism
Obstructive Sleep Apnea
Morbid Obesity due to Excess Calories
Breast Cancer
Reported history of allergy to cats, pollen and mold.
Past Surgical History
Bilateral Mastectomy - 2011
Gastric Bypass - 2004
Social History
Tobacco: Former Smoker (Quit in 1991). Patient smoked from age 8 up until age 31, 1 to 2 packs/day. Has not smoked in 33 years. Remote use of marijuana, none currently. No history of vaping or e-cigarette use. 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
Alcohol: Other (Patient reports bouts of alcohol abuse, but no alcohol since 2020)
Family History
Family History: Other (Mother: Diabetes, CAD)
Patient Medication
Active Medications
Generic Name Dose Route Start Last Admin
Trade Name Freq PRN Reason Stop Dose Admin
Acetaminophen 650 mg 03/12/25 20:44
Acetaminophen 325 Mg Tablet PO 04/09/25 20:43
Q4HPRN PRN
mild pain/ fever>100.5F
Al Hydrox/Mg Hydrox/Simethicone 30 ml 03/14/25 22:42 03/15/25 09:48
Mag/Al/Simethicone Suspension 30 Ml Cup PO 04/11/25 22:41 30 ml
QIDPRN PRN Administration
indigestion
Albuterol Sulfate 2.5 mg 03/13/25 16:20
Albuterol Nebs 2.5 Mg/3 Ml Ampul INH 03/15/25 23:00
R ONCE PFT PRN
PFT SPIROMETRY PROTOCOL
Protocol
Aspirin 81 mg 03/13/25 08:00 03/15/25 08:34
Aspirin 81 Mg (Enteric Coated) Tablet PO 04/10/25 07:59 81 mg
DAILY JADIEL Administration
Atorvastatin Calcium 80 mg 03/13/25 18:00 03/14/25 17:51
Atorvastatin (Lipitor) 80 Mg Tablet PO 04/10/25 17:59 80 mg
QPM JADIEL Administration
Cyanocobalamin 1,000 mcg 03/13/25 08:00 03/15/25 08:36
Cyanocobalamin (Vitamin B-12) 500 Mcg Tablet PO 04/10/25 07:59 1,000 mcg
DAILY JADIEL Administration
Dextrose 12.5 grams 03/12/25 20:13
Dextrose 50% (0.5 Grams/Ml) 50 Ml Syringe IV 04/09/25 20:12
[id number] PRN
hypoglycemia
Protocol
Docusate Sodium 100 mg 03/13/25 08:00 03/15/25 08:34
Docusate Sodium 100 Mg Capsule PO 04/10/25 07:59 Not Given
BID JADIEL
Glucagon 1 mg 03/12/25 20:13
Glucagon 1 Mg Vial IM 04/09/25 20:12
PRN PRN
hypoglycemia
Protocol
Heparin Sodium 5,000 units 03/13/25 00:00 03/15/25 08:38
Heparin 5,000 Units/Ml 1 Ml Vial SC 04/10/25 00:00 5,000 units
Q8 JADIEL Administration
Furosemide 500 mg in 50 mls @ 1 mls/hr 03/14/25 15:00 03/14/25 16:42
Lasix IV 50 mls
ORDERED RATE JADIEL Administration
10 MG/HR
Insulin Aspart 0 units 03/13/25 07:30 03/15/25 08:37
Insulin Aspart Low Resistance 300 Units/3 Ml Pen.Injctr SC 04/10/25 07:29 Not Given
AC JADIEL
Protocol
Metoprolol Succinate 25 mg 03/13/25 08:00 03/15/25 08:37
Metoprolol 25 Mg Extended Release Tablet PO 04/10/25 07:59 25 mg
DAILY JADIEL Administration
Polyethylene Glycol 17 grams 03/12/25 20:44
Polyethylene Glycol Powder 17 Grams Packet PO 04/09/25 20:43
DAILYPRN PRN
constipation
Potassium Chloride 20 meq 11/11/25 08:00 03/15/25 08:35
Potassium Chloride 20 Meq Extended Release Tablet PO 04/10/25 07:59 20 meq
BID JADIEL Administration
Sacubitril/Valsartan 1 tab 03/13/25 08:00
Sacubitril 24 Mg/Valsartan 26 Mg (Entresto) Tab PO 04/10/25 07:59
On Hold: 03/13/25 08:00 BID JADIEL
Sodium Chloride 0 flush 03/12/25 21:00
Sodium Chloride 0.9% (Flush) Syringe IV 04/09/25 20:59
PER PROTOCOL JADIEL
Review of Systems
-
12 point review of systems fails to elicit additional complaints other than those reviewed in the HPI
Physical Exam
-
Physical exam
General: Well Developed, Well Nourished and Comfortable
HEENT: Normocephalic, Moist Mucous Membranes and PERRLA
Respiratory: Clear
Cardiac: S1/S2 and Regular Rhythm
GI: Soft, Non Tender and Normal Bowel Sounds
Skin: Warm and Dry
Neuro: Awake, Alert, Oriented and AO x 3
Extremities: Symmetrical trace edema
Psych: Calm
Labs
Lab Results
WBC 7.0 10^3/uL (4.8-10.8) 03/15/25 04:47
RBC 3.44 10^6/uL (4.20-5.40) L 03/15/25 04:47
Hgb 7.7 g/dL (12.0-16.0) L 03/15/25 04:47
Hct 26.1 % (37.0-47.0) L 03/15/25 04:47
MCV 75.9 fL (81.0-99.0) L 03/15/25 04:47
MCH 22.4 pg (27.0-31.0) L 03/15/25 04:47
MCHC 29.5 g/dL (33.0-37.0) L 03/15/25 04:47
RDW 24.8 % (11.5-14.5) H 03/15/25 04:47
Plt Count 371 10^3/uL (130-400) 03/15/25 04:47
MPV 10.2 fL (7.4-10.4) 03/15/25 04:47
Creatinine 0.8 mg/dL (0.6-1.0) 03/15/25 04:47
Vital Signs
Vital Signs
Temp Pulse Resp BP Pulse Ox
98.6 F 85 20 127/55 97
03/15/25 06:56 03/15/25 10:00 03/15/25 06:56 03/15/25 06:56 03/15/25 08:30
--- NOTE | 2025-03-15 11:43 | CM ---
priced meds with pts perscript plan- farxiga - tier 2 med- she pays 25% of the cost of the med= $ 149/month
entresto aslo tier 2 med- she pays 25% cost of med= $ 175/month
pt s\\tells me shemakes a little over $1000/month and she needs to only have generic meds.
[2025-03-15 11:52] LABS: Glucose - Point of Care 181 mg/dl (70-99)
[2025-03-15] MEDS: NOVOLOG FLEXPEN-LOW RESISTANCE 1 UNITS SC ×2 (11:57→17:46)
--- NOTE | 2025-03-15 12:07 | CON.GI ---
Addendum entered and electronically signed by Alexia Schaeffer Do, MD 03/15/25 15:58:
I saw and examined the patient.
The PHYSICIAN OFFICE ASSISTANT's note was reviewed and I agree with the note.
Comment: Trish is a 64yo W with h/o MONICA and RNY 2004 who was transferred from [facility] for abnormal left heart cath. GI consulted for preCABG evaluation for optimization. She endorses chronic intermittent solid food dysphagia. She is
edentulous and does not have implants or dentures in place. She reports erratic bowel movements. Overall wt stable and good appetite. She has not had EGD/colon in over 10yrs. Vitals stable exam obese NTTP well healed surgical scars. Labs
reviewed.
Impression
- Positive left heart cath
- CAD
- RNY 2004
- MONICA
- Obesity
- PE
- H/o breast cancer
- HTN
- HL
- DM
- CHF
Recommendations
- Check micronutrient and vitamin levels
- Wt stable
- C/w IV iron
- Trend H/h
- Add protonix IV
- C/w miralax
- Would benefit from EGD/colon to eval chronic dysphagia and CRC screening. These are not urgent and recommended to be done outpatient basis
- Recommend dentures or puree diet given edentulous and she declines. Encourage to chew slowly as may be contributing to transient dysphagia
GI will sign off please call for ?
Original Note:
Consultation
-
Date/Time Consultation Requested: 03/15/25 0920
Date/Time Consultation Performed: 03/15/25 1200
Requesting Provider: KANWAL Brown
Performing Provider: KANWAL Lamar, Alexia Mora MD
Reason for Consultation: anemia
Medical History
Chief Complaint / HPI
Chief Complaint: shortness of breath Admit for CT surg eval
History of Present Illness:
Pt is a 64yo with hx CAD, CHF, NIDDM, HTN, hyperlipidemia, obesity, sleep apnea, PE, breast CA with b/l mastectomy, gastric bypass [facility] at [facility] 2004 with [facility] with shortness of breath with CHF with decreased
EF. She had cath completed with concern for multivessel CAD for CT surgery eval. Asked to see by Ct surgery for GI eval for anemia and optimization with hx bypass. Pt reports hx of anemia with follow with Dr. Giron years ago and prior iron
infusions.
In review with patient she admit to multiple chronic GI issue. She has intermittent dysphagia for years with dry food. She will get occasional GERD with PRN tums use and occasional vomiting since the bypass years ago. She admits to occasional
gas pain but no blood or black in stools. She has alternating diarrhea and constipation since the bypass. Last EGD/colon about 7-10 years ago did not recall any abnormalities and unsure of location completed. On admission labs with hbg 8 with MCV
73, Na 132, glucose 125, iron 239, % sat 86, TIBC 276, ferritin 62.4, albumin 2.7,B12 447, folate 7.8, with normal WBC, LFT's, INR and platelets.
Past Medical History
Past Medical History: CAD, Cancer (breast CA), CHF (systolic and diastolic heart failure), HTN, Hypercholesterolemia, NIDDM and Other (PE, sleep apnea, obesity )
Past Surgical History: Gynecological (b/l mastectomy) and Other (gastric bypass 2004 )
Social History
Tobacco: Former Smoker (quit 1991)
Alcohol: Occasional (occasional social )
Drug: None
Personal:
Living: With Family
Employment: Retired
Family History
Family History: Other (mother with GERD )
Allergies / Home Medications
Allergy/AdvReac Type Severity Reaction Status Date / Time
strawberry Allergy Rash Verified 03/12/25 20:52
Review of Systems
-
History Source: Patient
Constitutional: Reports Other (loss and gain with fluid and diuresis )
EENT: Reports Other (occasional dysphagia )
Respiratory: Reports Trouble Breathing (on admission now improving )
Cardiac: Reports No Symptoms
Abdomen/GI: Reports Abdominal Pain (gas pains at times ), Vomiting (chronic intermittent ), Diarrhea and Constipated (alternating )
: Reports No Symptoms
Musculoskeletal: Reports Joint Pain
Skin: Reports No Symptoms
Neurological: Reports Weakness
Endocrine: Reports No Symptoms
Hematologic/Lymphatic: Reports No Symptoms
Vital Signs
Temp Pulse Resp BP Pulse Ox
98.9 F 85 20 127/55 98
03/15/25 11:15 03/15/25 10:00 03/15/25 11:15 03/15/25 06:56 03/15/25 11:15
Physical Exam
Exam
General: Well Developed, Well Nourished and No Apparent Distress
HEENT: Normocephalic and Anicteric
Respiratory: Clear
Cardiac: Regular Rhythm
GI: Soft, Non Tender and Non Distended
Rectal: Brown, Hem Positive, Hem Negative (some limitation of exam with large stool burden ) and Other (pt consented to exam )
Musculoskeletal: No Clubbing and No Cyanosis
Skin: Warm and Dry
Neuro: Awake, Alert and AO x 3
Psych: Calm
Results
WBC 7.0 10^3/uL (4.8-10.8) 03/15/25 04:47
Hgb 7.7 g/dL (12.0-16.0) L 03/15/25 04:47
Hct 26.1 % (37.0-47.0) L 03/15/25 04:47
MCV 75.9 fL (81.0-99.0) L 03/15/25 04:47
Plt Count 371 10^3/uL (130-400) 03/15/25 04:47
PT 14.1 Sec (11.4-14.6) 03/14/25 04:10
INR 1.06 03/14/25 04:10
APTT 29.4 Sec (23.4-35.0) 03/14/25 04:10
Sodium 135 mmol/L (135-145) 03/15/25 04:47
Potassium 4.1 mmol/L (3.5-5.1) 03/15/25 04:47
Chloride 99 mmol/L (98-107) 03/15/25 04:47
Carbon Dioxide 32 mmol/L (22-30) H 03/15/25 04:47
BUN 15 mg/dl (7-17) 03/15/25 04:47
Creatinine 0.8 mg/dL (0.6-1.0) 03/15/25 04:47
Calcium 6.9 mg/dl (8.4-10.2) L* 03/15/25 04:47
Total Bilirubin 0.8 mg/dl (0.2-1.3) 03/14/25 04:10
AST 26 U/L (14-36) 03/14/25 04:10
ALT 26 U/L (0-35) 03/14/25 04:10
Alkaline Phosphatase 270 U/L (38-126) H 03/14/25 04:10
Diagnostic Image Results:
Prior GI Procedures:
EGD: 7-10 years ago recall as normal
Colonoscopy: 7-10 years ago recall as normal
Assessment / Plan
-
Pt is a 64yo with hx CAD, CHF, NIDDM, HTN, hyperlipidemia, obesity, sleep apnea, PE, breast CA with b/l mastectomy, gastric bypass Jackie en Y at [facility] 2004 with admission to [facility] on 03/09 with shortness of breath with CHF with decreased
EF. She had cath completed with concern for multivessel CAD for CT surgery eval. Asked to see by Ct surgery for GI eval for anemia and optimization with hx bypass. Pt reports hx of anemia with follow with Dr. Giron years ago and prior iron
infusions. In review with patient she admit to multiple chronic GI issue. She has intermittent dysphagia for years with dry food. She will get occasional GERD with PRN tums use and occasional vomiting since the bypass years ago. She admits to
occasional gas pain but no blood or black in stools. She has alternating diarrhea and constipation since the bypass. Last EGD/colon about 7-10 years ago did not recall any abnormalities and unsure of location completed. On admission labs with hbg
8 with MCV 73, Na 132, glucose 125, iron 239, % sat 86, TIBC 276, ferritin 62.4, albumin 2.7,B12 447, folate 7.8, with normal WBC, LFT's, INR and platelets.
-heme neg microcytic anemia wit hx chronic anemia and prior iron deficiency with prior iron infusions
-gastric bypass Jackie en Y at [facility] 2004
-diarrhea alternating with constipation with
-chronic dysphagia, GERD and occasional vomiting for years
-mult-vessel CAD
-CHF
-UTI on abx
-per hospitalist note hep C + screen awaiting RNA results
-hypoalbuminemia
other med problems:
CAD, CHF, NIDDM, HTN, hyperlipidemia, obesity, sleep apnea, PE, breast CA with b/l mastectomy
PLAN:
Etiology of anemia unclear but chronic for years may be related to post- bypass
currently heme neg no signs of active GI bleeding at this time
trend hbg
await heme input
on IV iron
cont diet
increased stool on rectal exam will give dulcolax now and add miralax daily
will review vitamin levels with Dr. Mora to see if any further need to be added
per hospitalist notee hep C screen + awaiting RNA to confirm status if RNA + need OP GI eval
-
-
Thank you for consultation and allowing me to participate in the patient's care. Please call the director information GI physician during the after hours with any questions or concerns.
--- NOTE | 2025-03-15 13:03 | W.PN.HOSP.TC ---
Addendum entered and electronically signed by Rosalino Swanson MD 03/16/25 15:07:
Hyponatremia
Original Note:
Today's Communication/Plan
-
IV Iron per Hematology
GI evaluation
ongoing pre-op optimization towards possible CABG
Assessment / Plan
Assessment / Plan
Assessment:
Multivessel Coronary Artery Disease
-Diagn[facility] on [facility] at [facility]
-Transferred to [place] for CT surgery evaluation for CABG; ongoing
-Getting PFT/Carotid us/CT chest as part of pre-op evaluation
-Continue aspirin
-follow CT Surgery recs
Acute Combined Systolic and Diastolic Heart Failure
-cardiology following and help appreciated.
-currently receiving Lasix drip
-holding Entresto
-follow up weight/cr
E. coli Urinary Tract Infection
-completed 3 day Rocephin course
Hepatitis C Screen Positive
-Attempt to obtain RNA results from [facility]
Diabetes Mellitus, Type II
-Hold oral meds
-HgbA1c of 6.1
-Consider starting Farxiga
-Monitor sugars and continue coverage insulin
Essential Hypertension
-Continue metoprolol
Hyperlipidemia
-Continue atorvastatin
Anemia, patient reports chronic
-Patient received dose of IV Venofer at [facility]
-Continue vitamin b12 supplement
-hematology evaluated; start IV iron with Ferritin <100
-GI also consulted by CT surg
Obstructive Sleep Apnea
-Patient reports non-compliance with CPAP - Will need outpatient evaluation
Morbid Obesity due to Excess Calories
-Affects all aspects of care
Hx Pulmonary Embolism, possible provoked in setting of breast cancer
- was recommended Xarelto lifelong in 2011
- Patient reports stopping Xarelto on her own in 2019
Hx Breast Cancer s/p Bilateral Mastectomy 2011
DVT ppx: SC Heparin
Code: Full
Anticipated Discharge: > 48 hours
Subjective/Interval History
-
Date of Service: March 15, 2025
denies bleeding
Hb 7.7
denies cp or sob
Objective Data
-
Labs:
Laboratory Results
03/15/25
04:47
WBC 7.0
Hgb 7.7 L
Hct 26.1 L
Plt Count 371
Sodium 135
Potassium 4.1
Chloride 99
Carbon Dioxide 32 H
BUN 15
Creatinine 0.8
Glucose 116 H
Calcium 6.9 L*
Vital Signs:
Vital Signs
Temp Pulse Resp BP Pulse Ox
98.9 F 84 20 108/63 98
03/15/25 11:15 03/15/25 12:00 03/15/25 11:15 03/15/25 11:12 03/15/25 11:15
I&O
03/14/25 03/15/25 03/16/25
06:59 06:59 06:59
Intake Total 480 / 480 642 / 642
Output Total 5277 / 5277 1974
Balance 480 / 480 -4635 / -4635 -1974
Physical Exam
-
General: No Apparent Distress and Obese
HEENT: Normocephalic and Atraumatic
Respiratory: Negative Wheezes
Cardiac: Regular Rhythm and S1/S2
GI: Soft and Nontender
Musculoskeletal: No Edema
Neuro: AO x 3
Psych: Calm
Data Reviewed
-
Total Time Spent with Patient (in minutes): 45
Labs: Labs Reviewed by me
--- NOTE | 2025-03-15 13:18 | W.PN.PUL3 ---
Today's Communication / Plan
-
- Initiate nocturnal supplemental oxygen, 2 L/min when sleeping.
- Pulmonary/critical care team will resume follow-up post surgery. Please call as needed
Assessment
-
Patient is a very pleasant 64-year-old female with history of hypertension, diabetes and mild intermittent asthma who presented to [facility] on March 09 with worsening dyspnea. Patient was noted to be volume overloaded with bilateral
pitting edema and was diagnosed with a congestive heart failure. Patient subsequently had a cardiac catheterization which showed reported multivessel coronary artery disease and was subsequently transferred to [facility] for consideration
for surgical revascularization. Patient since has been on diuresis and medical management with gradual improvement. In preparation for coronary artery bypass graft, patient had pulmonary function testing performed which was suggestive of moderate
risk traction with decreased diffusion capacity. Pulmonary consultation was requested for further input.
#1. Restrictive lung disease
- Pulmonary function testing reviewed, suggestive of moderate restrictive lung disease with decreased FEV1 and TLC. Diffusion capacity corrected also reduced. No evidence of interstitial lung disease noted on review of CT scan. Echocardiogram
reviewed, normal pulmonary artery pressures. Patient is not anemic. Suspect the restriction is extrapulmonary due to morbid obesity
- Corrected DLCO is low which I suspect is related to atelectasis in the left lower lobe as well as small pleural effusion and congestive heart failure rather than any pulmonary parenchymal or pulmonary vascular disease.
- FEV1/FVC normal, no wheezing on exam, patient is saturating well on room air.
- Patient is certainly at high risk of complications due to morbid obesity, restrictive lung disease as well as history of mild intermittent asthma. However, there is no acutely modifiable factors that will lower her operative risk, can proceed
with needed coronary artery bypass graft surgery. Continue to diurese to optimize intravascular volume status, patient currently quite volume overloaded with 2+ bilateral pitting edema.
- Patient at risk of developing worsening hypercapnia postsurgery, recommend end-tidal CO2 monitoring and minimizing sedating medications
- Low threshold to extubate patient to BiPAP. Pulmonary/dtp operator team will continue to follow along
#2. MONICA, not on PAP therapy
- Reported history of diagnosis of obstructive sleep apnea more than 10 years ago. Patient reportedly did not tolerate PAP therapy and has not followed up with pulmonary or speech specialist since
- Recommend outpatient follow-up with pulmonary/sleep clinic, information added to DC section
- Currently saturating well on room air
- 03/15, overnight oximetry showed oxygen saturation below 89% for upcoming elective 10 minutes. Initiate nocturnal supplemental oxygen at 2 L/min. Outpatient sleep study
#3. Chronic compensated hypercapnia, suspect OHS
- VBG reviewed, , consistent with chronic compensated hypercapnia, suspect related to obesity hypoventilation syndrome
- Patient will need outpatient follow-up with pulmonary clinic and a dedicated sleep study for further recommendations
- Check end-tidal CO2 post extubation and low threshold to extubate to BiPAP. Pulmonary/dtp operator service will continue to follow along post surgery.
- Minimize sedating medications.
#4. LLL atelectasis
- Suspect compressive atelectasis due to small left sided pleural effusion
- Obesity and extrapulmonary restriction also contributing
- Initiate incentive spirometry, sit in chair, activity as tolerated
- Outpatient follow-up with pulmonary clinic, will need a follow-up imaging to ensure resolution, if has persistent volume loss, will need endobronchial evaluation with bronchoscopy
#5. H/o Mild intermittent asthma
- Symptoms well-controlled, rare use of as needed albuterol.
- Patient denies any hospitalization, intubation or need for PAP therapy related to asthma
- Continue albuterol on an as needed basis
- Will check eosinophil count and IgE along with RAST panel as outpatient. Reported history of allergy to pollen, cats and mold etc.
#6. Morbid obesity, s/p gastric bypass surgery 2004
- Contributing to extrapulmonary restriction, obstructive sleep apnea and possibly obesity hypoventilation syndrome
Other medical diagnoses:
- Newly detected HFrEF, LVEF 30-35%, bilateral small pleural effusions. Currently on IV Lasix. Management per cardiology service.
- Multi-vessel CAD, currently being evaluated for CABG
- CA breast, s/p bilateral mastectomy in 2011 (No chemo or radiation)
- H/o PE in 12/2011, off Xarelto since 2019
- h/o HCV
Total time spent on this consultation/encounter _48___ minutes which includes review of history, physical exam, medications, laboratory data, personal review of imaging, extensive review of outpatient records, discussion with care team and
respiratory therapy.
Data:
PFT 03/2025: Spirometry without evidence of obstruction or bronchodilator response. Moderate restriction noted with TLC reduced at 51% of predicted and FEV1 reduced at 49% of predicted. Moderately reduced diffusion capacity at 46% of predicted
when corrected for alveolar volume.
ECHO 03/2025: 1. Mildly dilated LV. Moderately reduced LV systolic function, LVEF 30 to 35%. Global hypokinesis.
2. No significant valve disease.
3. No pericardial effusion.
4. No prior study available for comparison.
5. PASP 23 mm, normal RV
Subjective Data
-
Date of Service:
Date of Service: March 15, 2025
Subjective:
Patient comfortably sitting in bed in no acute distress.
Review of Systems
Genitourinary: Other (All 14 systems reviewed and negative except as stated above in the history of present illness.)
Objective Data
Data Reviewed
Vital Signs / I&O / Oxygen:
Vital Signs
Temp Pulse Resp BP Pulse Ox
98.9 F 84 20 108/63 98
03/15/25 11:15 03/15/25 12:00 03/15/25 11:15 03/15/25 11:12 03/15/25 11:15
Intake and Output
03/14/25 03/15/25 03/16/25
06:59 06:59 06:59
Intake Total 480 / 480 642 / 642
Output Total 5277 / 5277 1974
Balance 480 / 480 -4635 / -4635 -1974
SaO2 98
Physical Exam
General: Comfortable
HEENT: Normocephalic
Cardiovascular: S1-S2 and Peripheral Edema (Gradually improving)
Respiratory: Crackles (Few inspiratory crackles bilaterally posteriorly.)
GI: Soft and Non Distended
Neurology: Awake and Alert
Skin: Warm
Labs/Micro/Reports
Lab Data
03/15/25 04:47
03/15/25 04:47
Microbiology
03/13/25 04:22 Nose MRSA Screen - Final
No Methicillin Resistant Staphylococcus aureus isolated.
[2025-03-15] MEDS: VITAMIN C 250 MG PO (14:14)
[2025-03-15] MEDS: DULCOLAX 10 MG RECTAL (15:10)
[2025-03-15] MEDS: FERRLECIT 110 MG IV (15:10)
[2025-03-15] MEDS: MIRALAX 17 GRAMS PO (15:11)
[2025-03-15 15:36] LABS: Albumin 3.3 g/dl (3.5-5.0)
[2025-03-15 15:45] LABS: Prealbumin (Transthyretin) 11.0 mg/dl (17.6-36.0)
[2025-03-15 16:31] LABS: Vitamin B12 680 pg/ml (239-931)
[2025-03-15] MEDS: LASIX 20 MG IV (16:48)
[2025-03-15 17:12] LABS: Blood Urea Nitrogen 18 mg/dl (7-17); Calcium 7.1 mg/dl (8.4-10.2); Carbon Dioxide 31 mmol/L (22-30); Chloride 95 mmol/L (98-107); Estimated Creatinine Clearance 77 ml/min; Glucose 143 mg/dl (70-99); Potassium 4.7 mmol/L (3.5-5.1); Sodium 131 mmol/L (135-145); eGFR > 60.00
[2025-03-15 17:34] LABS: Glucose - Point of Care 155 mg/dl (70-99)
[2025-03-15] MEDS: LIPITOR 80 MG PO (17:46)
[2025-03-15 21:26] LABS: Magnesium 1.7 mg/dl (1.6-2.3)
[2025-03-15] MEDS: COLACE 100 MG PO (21:28)
[2025-03-15 22:19] LABS: Glucose - Point of Care 211 mg/dl (70-99)
[2025-03-16] VITALS (7 sets, daily range): BP systolic 111–161; BP diastolic 40–113; BMI 40.6
[2025-03-16 04:46] LABS: Blood Urea Nitrogen 19 mg/dl (7-17); Calcium 6.9 mg/dl (8.4-10.2); Carbon Dioxide 32 mmol/L (22-30); Chloride 96 mmol/L (98-107); Estimated Creatinine Clearance 77 ml/min; Glucose 115 mg/dl (70-99); Magnesium 1.8 mg/dl (1.6-2.3); Potassium 3.9 mmol/L (3.5-5.1); Sodium 133 mmol/L (135-145); eGFR > 60.00
[2025-03-16 04:48] LABS: Hematocrit 26.5 % (37.0-47.0); Hemoglobin 7.7 g/dL (12.0-16.0); Mean Corp Hgb Conc. 29.1 g/dL (33.0-37.0); Mean Corpuscular Volume 77.3 fL (81.0-99.0); Platelet Count 405 10^3/uL (130-400); Red Cell Dist. Width 25.3 % (11.5-14.5)
[2025-03-16] MEDS: CALCIUM GLUCONATE 100 IV (06:24)
[2025-03-16 07:24] LABS: Glucose - Point of Care 108 mg/dl (70-99)
[2025-03-16 07:31] LABS: Vitamin D, 25-OH*** < 12.8 ng/mL (30-80)
[2025-03-16] MEDS: NOVOLOG FLEXPEN-LOW RESISTANCE SC ×2 (07:35→12:32)
--- NOTE | 2025-03-16 07:48 | PTCARENOTE ---
Pt NSR on monitor, VSS. Pt denies pain , SOB or any discomfort. Dozier cath urine clear and yellow. Pt independent in the room. Call within reach
[2025-03-16] MEDS: VITAMIN B-12 1000 MCG PO (08:38)
[2025-03-16] MEDS: COLACE 100 MG PO ×2 (08:38→20:41)
[2025-03-16] MEDS: VITAMIN C 250 MG PO (08:38)
[2025-03-16] MEDS: KCL 20 MEQ PO ×2 (08:38→20:41)
[2025-03-16] MEDS: ASPIR LOW (ENTERIC COATED) 81 MG PO (08:39)
[2025-03-16] MEDS: TOPROL XL 25 MG PO (08:39)
[2025-03-16] MEDS: LASIX IV ×2 (08:39→08:59)
[2025-03-16] MEDS: HEPARIN 5000 UNITS SC ×2 (08:40→15:43)
[2025-03-16] MEDS: MIRALAX 17 GRAMS PO (08:40)
[2025-03-16] MEDS: LASIX 40 MG IV ×2 (08:59→15:44)
--- NOTE | 2025-03-16 09:32 | W.PN.CD ---
Today's Communication / Plan
-
-Will place on Lasix 40 mg IV BID for continued aggressive diuresis.
Impression / Plan
-
I/P: 64F with breast cancer status post bilateral mastectomy (2011), hypertension, type 2 diabetes mellitus, and former smoker who presented to [facility] on 03/09/2025 with a chief complaint of shortness of breath -> new HFrEF -> cardiac
catheterization with multivessel CAD.
Primary landing man: [facility]
Acute HFrEF (LVEF 30-35%): Ischemic vs. mixed cardiomyopathy without significant valve disease
-Improving with IV Lasix.
-RHC with wedge consistent with compensated HF, likely at her dry weight, currently 115 kg
-Will place on Lasix 40 mg IV BID for continued aggressive diuresis.
-SOL/ARB/ARNI: Sacubitril�valsartan 24-[address] surgery evaluation
-SGLT2 inhibitor: Case management to [place], hold with CT surgery evaluation
-Aldosterone agonist: Consider the addition of spironolactone after CT surgery evaluation
-Beta jonathan: Continue Metoprolol succinate 25 mg daily
-Isosorbide/Hydralazine:�Holding for now, labile blood pressure
-ICD: not currently indicated; reassess after CABG.
Coronary artery disease, multivessel, severe
- CT Surgery evaluation: CABG evaluation
- Angiogram: 60% prox LAD lesion and serial moderate-severe disease in the LCx/RCA; complete revascularization would require VARGHESE-LAD, and additional grafts to distal LCx OM, RPDA, +/- diagonal.
- morbid obesity increases her surgical risk
- TC 176, LDL 118, HDL 32, TG 130, she was started on atorvastatin 80 mg, goal LDL <55
Type 2 diabetes mellitus
- Controlled, HgbA1c 6.4%
Obesity, BMI 44
- She would benefit from weight loss, affects all aspects of care
- Prior gastric bypass (2004)
- Consider the addition of GLP-1 pending course, coverage
Anemia
- In the setting of depleted iron stores (received Venofer) and B12 deficiency
- Evaluated by hematology at [facility] and here
Dyslipidemia, as above
MONICA with CPAP noncompliance
Prior PE, unclear provoked versus unprovoked as she had breast cancer, self discontinued rivaroxaban in 2019
Breast cancer status post bilateral mastectomy 2011
DATA:
Cardiac catheterization, 03/12/2025 ([facility], Dr. Holley):
Severe triple-vessel CAD with pLAD involvement in a diabetic patient with moderate to severely depressed LVEF.
Ideally target should include LAD, major diagonal branch, large inferior lateral marginal branch, and right coronary PDA.
Physical Exam
Vital Signs/Labs
Vital Signs
Temp Pulse Resp BP Pulse Ox
98.6 F 87 18 144/109 100
03/16/25 07:09 03/16/25 07:09 03/16/25 07:09 03/16/25 07:09 03/16/25 07:09
03/15/25 03/16/25 03/17/25
06:59 06:59 06:59
Actual Weight 112.7 kg 107.1 kg
03/16/25 04:06
03/16/25 04:06
PT 14.1 Sec (11.4-14.6) 03/14/25 04:10
INR 1.06 03/14/25 04:10
APTT 29.4 Sec (23.4-35.0) 03/14/25 04:10
Magnesium 1.8 mg/dl (1.6-2.3) 03/16/25 04:06
Triglycerides 106 mg/dl (10-149) 03/15/25 04:47
LDL Cholesterol, Calc 93 mg/dl 03/15/25 04:47
VLDL Cholesterol, Calc 21 mg/dl (0-30) 03/15/25 04:47
HDL Cholesterol 37 mg/dl 03/15/25 04:47
03/13/25
14:47
Gzt-S-Lehzqvnlyag Pept [id number]
LAB Results
03/13/25
14:47
Troponin I 0.019
Physical Exam
Constitutional: No acute distress and Comfortable
EENT: Anicteric
Cardiovascular: Rhythm & rate is regular, Systolic murmur absent, Pedal edema present (2-3+) and S1S2 is normal
Respiratory: Respiratory effort normal and Lungs clear to auscul.
GI: Soft
Neuro/Psych: AO x 3
Other: Skin (warm, dry, intact)
Data Reviewed
-
Date of Service: March 16, 2025
EKG: Tracing Personally Visualized and interpreted (Telemetry: Sinus rhythm)
Echo: Report Reviewed by me (EF 30-35%)
Medical Tests (PFT, Pathology etc): Discussed with Physician (CT Surgery team), Discussed with Nurse and Discussed with Patient
Labs: Labs Reviewed by me
--- NOTE | 2025-03-16 10:30 | PN.CDI ---
CDI
- -
CDI:
Physician Documentation Request
Admit Date: 03/12/25 18:36
Dear Doctor,
Patient admitted for CAD.
Laboratory Tests
03/13/25 03/14/25 03/14/25
04:22 04:10 20:59
Sodium 132 L 132 L 132 L
03/15/25 03/16/25
14:44 04:06
Sodium 131 L 133 L
Based on the above, could you clarify in the progress notes, the appropriate diagnosis, if significant, that supports the above abnormalities and additional evaluation, monitoring and/or treatment rendered:
Hyponatremia
Abnormal lab value insignificant
Other
Use of terms such as suspected, likely, concern for, or probable (associated with a specific diagnosis that is being evaluated, monitored, or treated as if it exists) are acceptable and can be coded in the inpatient setting, when documented at the
time of discharge.
Thank you,
Dannielle Moy RN, BSN
CDI Specialist
Available via [employer] text
Please use your independent medical judgment in providing your response.
--- NOTE | 2025-03-16 11:09 | PTCARENOTE ---
Jacoby baron D/C'd without incident. Pt OOB in room, denies pain, denies SOB. OOB in chair for breakfast.
[2025-03-16 11:48] LABS: Glucose - Point of Care 142 mg/dl (70-99)
--- NOTE | 2025-03-16 14:35 | W.PN.HOSP.TC ---
Today's Communication/Plan
-
Diuretics per cardiology
Maintain on IV iron
Follow hemoglobin level
Assessment / Plan
Assessment / Plan
Multivessel Coronary Artery Disease
-Diagnosed on [facility] at [facility]
-Transferred to [place] for CT surgery evaluation for CABG; ongoing
-got PFT/Carotid us/CT chest as part of pre-op evaluation
-Continue aspirin
-follow CT Surgery recs
Acute Combined Systolic and Diastolic Heart Failure
-cardiology following and help appreciated.
-was on lasix drip yesterday, switched to IV lasix 40mg/bid today
-holding Entresto
-follow up weight/cr
E. coli Urinary Tract Infection - resolved
-completed 3 day Rocephin course
Hepatitis C Screen Positive
-Attempt to obtain RNA results from [facility]
Diabetes Mellitus, Type II
-Hold oral meds
-HgbA1c of 6.1
-Monitor sugars and continue coverage insulin
Essential Hypertension
-Continue metoprolol
Hyperlipidemia
-Continue atorvastatin
Anemia, patient reports chronic
-Patient received dose of IV Venofer at [facility]
-check stool for occult blood
-hematology evaluated; start IV iron with Ferritin <100
-GI also consulted by CT surg - gi recommended OP EGD/Cscope
Obstructive Sleep Apnea
-Patient reports non-compliance with CPAP - Will need outpatient evaluation
Morbid Obesity due to Excess Calories
-Affects all aspects of care
Hx Pulmonary Embolism, possible provoked in setting of breast cancer
- was recommended Xarelto lifelong in 2011
- Patient reports stopping Xarelto on her own in 2019
Hx Breast Cancer s/p Bilateral Mastectomy 2011
DVT ppx: SC Heparin
Code: Full
Anticipated Discharge: 24 - 48 hours
Subjective/Interval History
-
Date of Service: March 16, 2025
No new reported problems overnight
denies of having shortness breath
no chest pain
Objective Data
-
Labs:
Laboratory Results
03/16/25
04:06
WBC 9.1
Hgb 7.7 L
Hct 26.5 L
Plt Count 405 H
Sodium 133 L
Potassium 3.9
Chloride 96 L
Carbon Dioxide 32 H
BUN 19 H
Creatinine 0.9
Glucose 115 H
Calcium 6.9 L*
Vital Signs:
Vital Signs
Temp Pulse Resp BP Pulse Ox
98.4 F 80 18 144/109 100
03/16/25 11:40 03/16/25 10:00 03/16/25 11:40 03/16/25 07:09 03/16/25 11:40
I&O
03/15/25 03/16/25 03/17/25
06:59 06:59 06:59
Intake Total 642 / 642
Output Total 5277 / 5277 3900 / 3900 2099 / 2099
Balance -4635 / -4635 -3900 / -3900 -2099 / -2099
Review of Systems
-
Respiratory: Reports No Symptoms
Cardiac: Reports No Symptoms
Abdomen/GI: Reports No Symptoms
Physical Exam
-
General: No Apparent Distress and Obese
HEENT: Normocephalic and Atraumatic
Respiratory: Negative Wheezes
Cardiac: Regular Rhythm and S1/S2
GI: Soft and Nontender
Musculoskeletal: No Edema
Neuro: AO x 3
Psych: Calm
--- NOTE | 2025-03-16 14:47 | W.PN.UPDATE ---
Update Note
Progress Note Update
STS RISK SCORE
Procedure Type:�Isolated CABG
Perioperative Outcome Estimate %
Operative Mortality 5.74%
Morbidity & Mortality 27.1%
Stroke 1.12%
Renal Failure 6.01%
Reoperation 3.24%
Prolonged Ventilation 20.6%
Deep Sternal Wound Infection 1.04%
Long Hospital Stay (>14 days) 28.9%
Short Hospital Stay (<6 days)* 9.11%
Clinical Summary
Planned Surgery: Isolated CABG, Urgent, First cardiovascular surgery
Demographics: 64 year old, female, 115kg, 163cm, BMI: 43.3 kg/m�
Lab Values: Creatinine: 0.7 mg/dL, Hematocrit: 26.8%, WBC Count: 9.9 10�/�L, Platelet Count: 424193 cells/�L
Substance Abuse: Former smoker
Risk Factors / Comorbidities: Diabetes Mellitus , Liver Disease
Pulmonary RF: Severe CLD, Sleep Apnea
Cardiac Status: Acute and chronic heart failure, NYHA Class III, Ejection Fraction = 33%
Coronary Artery Disease: 3 vessels diseased, Proximal LAD Stenosis >=70%, Angina equivalent
Valve Disease: Trivial/Trace MR, Trivial/Trace TR
[2025-03-16] MEDS: FERRLECIT 110 MG IV (15:43)
[2025-03-16 15:51] LABS: Glucose - Point of Care 193 mg/dl (70-99)
[2025-03-16] MEDS: NOVOLOG FLEXPEN-LOW RESISTANCE 1 UNITS SC (15:58)
[2025-03-16] MEDS: LIPITOR 80 MG PO (17:45)
[2025-03-16 21:17] LABS: Glucose - Point of Care 128 mg/dl (70-99)
[2025-03-17] VITALS (9 sets, daily range): BP systolic 104–136; BP diastolic 51–84; BMI 40.4
[2025-03-17] MEDS: HEPARIN 5000 UNITS SC ×4 (00:03→23:37)
[2025-03-17 05:34] LABS: Hematocrit 28.0 % (37.0-47.0); Hemoglobin 8.3 g/dL (12.0-16.0); Mean Corp Hgb Conc. 29.6 g/dL (33.0-37.0); Mean Corpuscular Volume 75.7 fL (81.0-99.0); Platelet Count 390 10^3/uL (130-400); Red Cell Dist. Width 25.5 % (11.5-14.5)
[2025-03-17 05:46] LABS: Blood Urea Nitrogen 20 mg/dl (7-17); Calcium 7.1 mg/dl (8.4-10.2); Carbon Dioxide 30 mmol/L (22-30); Chloride 97 mmol/L (98-107); Estimated Creatinine Clearance 74 ml/min; Glucose 113 mg/dl (70-99); Magnesium 1.8 mg/dl (1.6-2.3); Potassium 4.1 mmol/L (3.5-5.1); Sodium 131 mmol/L (135-145); eGFR > 60.00
--- NOTE | 2025-03-17 06:39 | PTCARENOTE ---
Assumed care on pt at 1900, aaox3, denied cp or SOB, ambulating self in the room, steady gait. Voiding clear yellow urine, good output. SR on tele, HR 80's. Pox 96-98% RA. BP stable. POC ongoing, Call pérez within reach.
[2025-03-17 07:41] LABS: Glucose - Point of Care 127 mg/dl (70-99)
[2025-03-17] MEDS: MIRALAX 17 GRAMS PO (08:10)
[2025-03-17] MEDS: COLACE 100 MG PO ×2 (08:10→20:51)
[2025-03-17] MEDS: VITAMIN B-12 1000 MCG PO (08:10)
[2025-03-17] MEDS: ASPIR LOW (ENTERIC COATED) 81 MG PO (08:10)
[2025-03-17] MEDS: VITAMIN C 250 MG PO (08:10)
[2025-03-17] MEDS: TOPROL XL 25 MG PO (08:10)
[2025-03-17] MEDS: KCL 20 MEQ PO (08:10)
[2025-03-17] MEDS: NOVOLOG FLEXPEN-LOW RESISTANCE SC ×3 (08:11→18:15)
[2025-03-17] MEDS: LASIX 40 MG IV ×2 (08:11→17:15)
--- NOTE | 2025-03-17 08:54 | W.PN.CD ---
Today's Communication / Plan
-
No plan for CABG this admission. Will bring her back as an outpatient.
Continue IV diuresis
Add GDMT with MRA and ARB
Impression / Plan
-
I/P: 64F with breast cancer status post bilateral mastectomy (2011), hypertension, type 2 diabetes mellitus, and former smoker who presented to [facility] on 03/09/2025 with a chief complaint of shortness of breath -> new HFrEF -> cardiac
catheterization with multivessel CAD.
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
Acute HFrEF (LVEF 30-35%): Ischemic vs. mixed cardiomyopathy without significant valve disease
-Improving with IV Lasix. Down to 235 lb
-Continue Lasix 40 mg IV BID for continued aggressive diuresis.
-SOL/ARB/ARNI: Entresto cost prohibitive. Start valsartan 80 mg daily.
-SGLT2 inhibitor: Cost prohibitive
-Aldosterone agonist: Start spironolactone 12.5 mg daily
-Beta jonathan: Continue Metoprolol succinate 25 mg daily
-Isosorbide/Hydralazine:�Holding for now, labile blood pressure
-ICD: not currently indicated; reassess after GDMT
Coronary artery disease, multivessel, severe
- CT Surgery evaluation: May need CABG at some point, does not need to be done this admission
- Angiogram: 60% prox LAD lesion and serial moderate-severe disease in the LCx/RCA; complete revascularization would require VARGHESE-LAD, and additional grafts to distal LCx OM, RPDA, +/- diagonal.
- morbid obesity increases her surgical risk
- TC 176, LDL 118, HDL 32, TG 130, she was started on atorvastatin 80 mg, goal LDL <55
- Continue ASA and statin
Type 2 diabetes mellitus
- Controlled, HgbA1c 6.4%
Obesity, BMI 44
- She would benefit from weight loss, affects all aspects of care
- Prior gastric bypass (2004)
- Consider the addition of GLP-1 pending course, coverage
Anemia
- In the setting of depleted iron stores (received Venofer) and B12 deficiency
- Evaluated by hematology at [facility] and here
Dyslipidemia, as above
MOINCA with CPAP noncompliance
Prior PE, unclear provoked versus unprovoked as she had breast cancer, self discontinued rivaroxaban in 2019
Breast cancer status post bilateral mastectomy 2011
DATA:
Cardiac catheterization, 03/12/2025 ([facility], Dr. Holley):
Severe triple-vessel CAD with pLAD involvement in a diabetic patient with moderate to severely depressed LVEF.
Ideally target should include LAD, major diagonal branch, large inferior lateral marginal branch, and right coronary PDA.
Physical Exam
Vital Signs/Labs
Vital Signs
Temp Pulse Resp BP Pulse Ox
97.8 F 86 18 126/60 100
03/17/25 07:18 03/17/25 07:16 03/17/25 07:18 03/17/25 07:16 03/17/25 07:18
03/16/25 03/17/25 03/18/25
06:59 06:59 06:59
Actual Weight 236 lb 1.841 oz 235 lb 3.732 oz
03/17/25 04:28
03/17/25 04:28
PT 14.1 Sec (11.4-14.6) 03/14/25 04:10
INR 1.06 03/14/25 04:10
APTT 29.4 Sec (23.4-35.0) 03/14/25 04:10
Magnesium 1.8 mg/dl (1.6-2.3) 03/17/25 04:28
Triglycerides 106 mg/dl (10-149) 03/15/25 04:47
LDL Cholesterol, Calc 93 mg/dl 03/15/25 04:47
VLDL Cholesterol, Calc 21 mg/dl (0-30) 03/15/25 04:47
HDL Cholesterol 37 mg/dl 03/15/25 04:47
03/13/25
14:47
Ryx-J-Bfjerxfuaqk Pept [id number]
Physical Exam
Constitutional: No acute distress and Comfortable
Cardiovascular: Rhythm & rate is regular, Pedal edema present, S1S2 is normal and Murmur/rub/gallop absent
Respiratory: Respiratory effort normal and Lungs clear to auscul.
Neuro/Psych: AO x 3
Data Reviewed
-
Date of Service: March 17, 2025
Medical Decision Making: Reviewed Test Results, Test Interpretation and Review of Case with other Provider
EKG: Tracing Personally Visualized and interpreted
Echo: Report Reviewed by me
Labs: Labs Reviewed by me
[2025-03-17] MEDS: VITAMIN D3 (cholecalciferol) 125 MCG PO (09:51)
[2025-03-17] MEDS: ALDACTONE 12.5 MG PO (09:51)
[2025-03-17] MEDS: DIOVAN 80 MG PO (09:51)
[2025-03-17 12:19] LABS: Glucose - Point of Care 131 mg/dl (70-99)
--- NOTE | 2025-03-17 14:05 | W.PN.HOSP.TC ---
Addendum entered and electronically signed by Mathew Greene MD 03/17/25 14:14:
Adjust diagnosis
Acute on chronic systolic congestive heart failure
Original Note:
Today's Communication/Plan
-
diuresis per cards
monitor weight/cr
possible d/c earliest Wednesday
Assessment / Plan
Assessment / Plan
Multivessel Coronary Artery Disease
-Diagnosed on [facility]
-Transferred to [place] for CT surgery evaluation for CABG; ongoing
-got PFT/Carotid us/CT chest as part of pre-op evaluation
-Continue aspirin
-CTS recommended an elective surgery
Acute Combined Systolic and Diastolic Heart Failure
-cardiology following and help appreciated.
-was on lasix drip yesterday, switched to IV lasix 40mg/bid today
-Entresto cost prohibitive, changed to valsartan
-follow up weight/cr
E. coli Urinary Tract Infection - resolved
-completed 3 day Rocephin course
Hepatitis C Screen Positive
-Attempt to obtain RNA results from [facility]
Diabetes Mellitus, Type II
-Hold oral meds
-HgbA1c of 6.1
-Monitor sugars and continue coverage insulin
Essential Hypertension
-Continue metoprolol
Hyperlipidemia
-Continue atorvastatin
Anemia, patient reports chronic
-Patient received dose of IV Venofer at [facility]
-check stool for occult blood
-hematology evaluated; start IV iron with Ferritin <100
-GI also consulted by CT surg - gi recommended OP EGD/Cscope
Obstructive Sleep Apnea
-Patient reports non-compliance with CPAP - Will need outpatient evaluation
Morbid Obesity due to Excess Calories
-Affects all aspects of care
Hx Pulmonary Embolism, possible provoked in setting of breast cancer
- was recommended Xarelto lifelong in 2011
- Patient reports stopping Xarelto on her own in 2019
Hx Breast Cancer s/p Bilateral Mastectomy 2011
DVT ppx: SC Heparin
Code: Full
Anticipated Discharge: Within 24 hours
Subjective/Interval History
-
Date of Service: March 17, 2025
no complains overnight
Objective Data
-
Labs:
Laboratory Results
03/17/25
04:28
WBC 9.3
Hgb 8.3 L
Hct 28.0 L
Plt Count 390
Sodium 131 L
Potassium 4.1
Chloride 97 L
Carbon Dioxide 30
BUN 20 H
Creatinine 0.9
Glucose 113 H
Calcium 7.1 L
Vital Signs:
Vital Signs
Temp Pulse Resp BP Pulse Ox
98.3 F 80 20 128/84 98
03/17/25 11:47 03/17/25 12:00 03/17/25 11:47 03/17/25 11:46 03/17/25 11:47
I&O
03/16/25 03/17/25 03/18/25
06:59 06:59 06:59
Intake Total 480 / 480
Output Total 3900 / 3900 4080 / 4080 550 / 550
Balance -3900 / -3900 -3600 / -3600 -550 / -550
Review of Systems
-
Respiratory: Reports No Symptoms
Cardiac: Reports No Symptoms
Abdomen/GI: Reports No Symptoms
Physical Exam
-
General: No Apparent Distress and Obese
HEENT: Negative Oxygen
Musculoskeletal: Edema, Right Lower Extrem and Edema, Left Lower Extrem
Neuro: Awake, Alert and AO x 3
Psych: Calm
[2025-03-17] MEDS: FERRLECIT 110 MG IV (14:16)
[2025-03-17] MEDS: LIPITOR 80 MG PO (17:15)
[2025-03-17 18:31] LABS: Glucose - Point of Care 150 mg/dl (70-99)
[2025-03-17] MEDS: MAALOX 30 ML PO (20:54)
[2025-03-17 22:02] LABS: Glucose - Point of Care 122 mg/dl (70-99)
--- NOTE | 2025-03-17 22:56 | PTCARENOTE ---
Patient received at change of shift sitting at the edge of the bed. Patient reported some indigestion following supper, PRN Maalox given, see MAR. SR on telemetry. SaO2 on RA 97-99%. Plan of care discussed. Call pérez within reach. Care ongoing.
[2025-03-18] VITALS (8 sets, daily range): BP systolic 101–123; BP diastolic 47–99; BMI 40.0
[2025-03-18 04:29] LABS: Blood Urea Nitrogen 22 mg/dl (7-17); Calcium 7.1 mg/dl (8.4-10.2); Carbon Dioxide 29 mmol/L (22-30); Chloride 98 mmol/L (98-107); Estimated Creatinine Clearance 83 ml/min; Glucose 107 mg/dl (70-99); Magnesium 1.8 mg/dl (1.6-2.3); Potassium 4.2 mmol/L (3.5-5.1); Sodium 135 mmol/L (135-145); eGFR > 60.00
[2025-03-18 04:53] LABS: Hematocrit 28.7 % (37.0-47.0); Hemoglobin 8.5 g/dL (12.0-16.0); Mean Corp Hgb Conc. 29.6 g/dL (33.0-37.0); Mean Corpuscular Volume 77.2 fL (81.0-99.0); Platelet Count 475 10^3/uL (130-400); Red Cell Dist. Width 25.5 % (11.5-14.5)
[2025-03-18 07:47] LABS: Glucose - Point of Care 120 mg/dl (70-99)
[2025-03-18] MEDS: VITAMIN B-12 1000 MCG PO (07:55)
[2025-03-18] MEDS: TOPROL XL 25 MG PO ×2 (07:55→10:07)
[2025-03-18] MEDS: MIRALAX 17 GRAMS PO (07:55)
[2025-03-18] MEDS: VITAMIN C 250 MG PO (07:55)
[2025-03-18] MEDS: DIOVAN 80 MG PO ×2 (07:55→19:24)
[2025-03-18] MEDS: COLACE 100 MG PO ×2 (07:55→19:24)
[2025-03-18] MEDS: LASIX 40 MG IV ×2 (07:55→15:32)
[2025-03-18] MEDS: ALDACTONE 12.5 MG PO (07:55)
[2025-03-18] MEDS: ASPIR LOW (ENTERIC COATED) 81 MG PO (07:55)
[2025-03-18] MEDS: HEPARIN 5000 UNITS SC ×3 (07:56→23:03)
[2025-03-18] MEDS: NOVOLOG FLEXPEN-LOW RESISTANCE SC ×3 (07:56→17:50)
--- NOTE | 2025-03-18 09:44 | W.PN.CD ---
Today's Communication / Plan
-
Uptitrate GDMT
Continue IV diuresis
Possible discharge tomorrow
Impression / Plan
-
I/P: 64F with breast cancer status post bilateral mastectomy (2011), hypertension, type 2 diabetes mellitus, and former smoker who presented to [facility] on 03/09/2025 with a chief complaint of shortness of breath -> new HFrEF -> cardiac
catheterization with multivessel CAD.
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
Acute HFrEF (LVEF 30-35%): Ischemic vs. mixed cardiomyopathy without significant valve disease
-Improving with IV Lasix. Down to 233 lb
-Continue Lasix 40 mg IV BID for continued aggressive diuresis.
-SOL/ARB/ARNI: Entresto cost prohibitive. valsartan 80 mg daily started 03/17 -> increase to BID.
-SGLT2 inhibitor: Cost prohibitive
-Aldosterone agonist: Spironolactone 12.5 mg daily started 03/17
-Beta jonathan: Increase metoprolol succinate to 50 mg daily
-Isosorbide/Hydralazine:�Holding for now, labile blood pressure
-ICD: not currently indicated; reassess after GDMT
Coronary artery disease, multivessel, severe
- CT Surgery evaluation: May need CABG at some point, does not need to be done this admission
- Angiogram: 60% prox LAD lesion and serial moderate-severe disease in the LCx/RCA; complete revascularization would require VARGHESE-LAD, and additional grafts to distal LCx OM, RPDA, +/- diagonal.
- morbid obesity increases her surgical risk
- TC 176, LDL 118, HDL 32, TG 130, she was started on atorvastatin 80 mg, goal LDL <55
- Continue ASA and statin
Type 2 diabetes mellitus
- Controlled, HgbA1c 6.4%
Obesity, BMI 44
- She would benefit from weight loss, affects all aspects of care
- Prior gastric bypass (2004)
- Consider the addition of GLP-1 pending course, coverage
Anemia
- In the setting of depleted iron stores (received Venofer) and B12 deficiency
- Evaluated by hematology at [facility] and here
Dyslipidemia, as above
MONICA with CPAP noncompliance
Prior PE, unclear provoked versus unprovoked as she had breast cancer, self discontinued rivaroxaban in 2019
Breast cancer status post bilateral mastectomy 2011
DATA:
Cardiac catheterization, 03/12/2025 ([facility], Dr. Holley):
Severe triple-vessel CAD with pLAD involvement in a diabetic patient with moderate to severely depressed LVEF.
Ideally target should include LAD, major diagonal branch, large inferior lateral marginal branch, and right coronary PDA.
Physical Exam
Vital Signs/Labs
Vital Signs
Temp Pulse Resp BP Pulse Ox
97.6 F 80 17 116/99 100
03/18/25 06:55 03/18/25 07:00 03/18/25 06:55 03/18/25 06:55 03/18/25 06:55
03/17/25 03/18/25 03/19/25
06:59 06:59 06:59
Actual Weight 235 lb 3.732 oz 233 lb 0.458 oz
03/18/25 04:39
03/18/25 03:49
PT 14.1 Sec (11.4-14.6) 03/14/25 04:10
INR 1.06 03/14/25 04:10
APTT 29.4 Sec (23.4-35.0) 03/14/25 04:10
Magnesium 1.8 mg/dl (1.6-2.3) 03/18/25 03:49
Triglycerides 106 mg/dl (10-149) 03/15/25 04:47
LDL Cholesterol, Calc 93 mg/dl 03/15/25 04:47
VLDL Cholesterol, Calc 21 mg/dl (0-30) 03/15/25 04:47
HDL Cholesterol 37 mg/dl 03/15/25 04:47
03/13/25
14:47
Fnn-I-Smocoayhjiy Pept [id number]
Physical Exam
Constitutional: No acute distress and Comfortable
Cardiovascular: Rhythm & rate is regular, Pedal edema present, S1S2 is normal and Murmur/rub/gallop absent
Respiratory: Respiratory effort normal and Lungs clear to auscul.
Neuro/Psych: AO x 3
Data Reviewed
-
Date of Service: March 18, 2025
Medical Decision Making: Reviewed Test Results, Test Interpretation and Review of Case with other Provider
EKG: Tracing Personally Visualized and interpreted
Echo: Report Reviewed by me
Labs: Labs Reviewed by me
[2025-03-18] MEDS: MAALOX 30 ML PO (09:50)
[2025-03-18] MEDS: VITAMIN D3 (cholecalciferol) 125 MCG PO (10:08)
[2025-03-18 10:25] LABS: Copper, Serum 146.1 ug/dL (80.0-155.0)
--- NOTE | 2025-03-18 13:03 | W.PN.HOSP.TC ---
Today's Communication/Plan
-
ongoing diuresis and volume optimization
possible d/c in 24-48hrs
Assessment / Plan
Assessment / Plan
Multivessel Coronary Artery Disease
-Diagnosed on [facility] at [facility]
-Transferred to [place] for CT surgery evaluation for CABG; ongoing
-got PFT/Carotid us/CT chest as part of pre-op evaluation
-Continue aspirin
-CTS recommended patient to be returned for elective surgery
Acute Combined Systolic and Diastolic Heart Failure
-cardiology following and help appreciated.
-Entresto cost prohibitive, changed to valsartan
-follow up weight/cr
-Currently being diuresed with IV diuretic. Cardiology managing
E. coli Urinary Tract Infection - resolved
-completed 3 day Rocephin course
Hepatitis C Screen Positive
-Attempt to obtain RNA results from [facility]
Diabetes Mellitus, Type II
-Hold oral meds
-HgbA1c of 6.1
-Monitor sugars and continue coverage insulin
Essential Hypertension
-Continue metoprolol
Hyperlipidemia
-Continue atorvastatin
Anemia, patient reports chronic
-Patient received dose of IV Venofer at [facility]. stool check neg in [facility].
-hematology evaluated; provided IV iron
-GI also consulted by CT surg - gi recommended OP EGD/Cscope
Obstructive Sleep Apnea
-Patient reports non-compliance with CPAP - Will need outpatient evaluation
Morbid Obesity due to Excess Calories
-Affects all aspects of care
Hx Pulmonary Embolism, possible provoked in setting of breast cancer
- was recommended Xarelto lifelong in 2011
- Patient reports stopping Xarelto on her own in 2019
Hx Breast Cancer s/p Bilateral Mastectomy 2011
DVT ppx: SC Heparin
Code: Full
Discussed care plan with cardiology 03/18
Anticipated Discharge: Within 24 hours
Subjective/Interval History
-
Date of Service: March 18, 2025
no new complains overnight
no dyspnea/chest discomfort
Objective Data
-
Labs:
Laboratory Results
03/18/25 03/18/25
03:49 04:39
WBC Cancelled 8.8
Hgb Cancelled 8.5 L
Hct Cancelled 28.7 L
Plt Count Cancelled 475 H D
Sodium 135
Potassium 4.2
Chloride 98
Carbon Dioxide 29
BUN 22 H
Creatinine 0.8
Glucose 107 H
Calcium 7.1 L
Vital Signs:
Vital Signs
Temp Pulse Resp BP Pulse Ox
97.6 F 74 17 110/48 99
03/18/25 11:12 03/18/25 12:00 03/18/25 11:12 03/18/25 11:13 03/18/25 11:12
I&O
03/17/25 03/18/25 03/19/25
06:59 06:59 06:59
Intake Total 480 / 480 480 / 480
Output Total 4080 / 4080 1600 / 1600
Balance -3600 / -3600 -1120 / -1120
Review of Systems
-
Respiratory: Reports No Symptoms
Cardiac: Reports No Symptoms
Abdomen/GI: Reports No Symptoms
Physical Exam
-
General: No Apparent Distress and Obese
HEENT: Negative Oxygen
Musculoskeletal: Edema, Right Lower Extrem and Edema, Left Lower Extrem
Neuro: Awake, Alert and AO x 3
Psych: Calm
[2025-03-18 14:24] LABS: Glucose - Point of Care 123 mg/dl (70-99)
[2025-03-18] MEDS: FERRLECIT 110 MG IV (15:31)
--- NOTE | 2025-03-18 17:01 | PTCARENOTE ---
Pt with 11 beat run VT, felt slightly lightheaded, BP 121/70. Dr. Patterson made aware, no new orders at present.
[2025-03-18 17:45] LABS: Glucose - Point of Care 162 mg/dl (70-99)
[2025-03-18] MEDS: LIPITOR 80 MG PO (17:50)
[2025-03-18] MEDS: NOVOLOG FLEXPEN-LOW RESISTANCE 1 UNITS SC (17:52)
[2025-03-18] MEDS: TUMS CHEWABLE TABLET 400 MG PO (19:26)
--- NOTE | 2025-03-18 20:51 | PTCARENOTE ---
Patient received at change of shift sitting at the edge of the bed. Denies chest pain. Reports some indigestion while eating dinner, PRN Tums given, see MAR. OROZCO on telemetry. Oxygen saturation 99-100% on RA. Voiding in the bathroom w/o difficulty.
Patient hoping to be discharged tomorrow. Plan of care discussed. Call pérez within reach. Care ongoing.
[2025-03-18 22:29] LABS: Glucose - Point of Care 136 mg/dl (70-99)
[2025-03-19 03:18] VITALS: BP 122/53
[2025-03-19 03:19] VITALS: BMI 40.2
[2025-03-19 04:04] LABS: Hematocrit 26.9 % (37.0-47.0); Hemoglobin 8.0 g/dL (12.0-16.0); Mean Corp Hgb Conc. 29.7 g/dL (33.0-37.0); Mean Corpuscular Volume 77.5 fL (81.0-99.0); Platelet Count 296 10^3/uL (130-400); Red Cell Dist. Width 25.3 % (11.5-14.5)
[2025-03-19 04:26] LABS: Blood Urea Nitrogen 25 mg/dl (7-17); Calcium 7.3 mg/dl (8.4-10.2); Carbon Dioxide 27 mmol/L (22-30); Chloride 99 mmol/L (98-107); Estimated Creatinine Clearance 83 ml/min; Glucose 114 mg/dl (70-99); Magnesium 2.0 mg/dl (1.6-2.3); Potassium 4.2 mmol/L (3.5-5.1); Sodium 134 mmol/L (135-145); eGFR > 60.00
[2025-03-19 07:05] VITALS: BP 120/42
[2025-03-19 07:48] LABS: Glucose - Point of Care 135 mg/dl (70-99)
--- NOTE | 2025-03-19 08:21 | W.PN.CD ---
Today's Communication / Plan
-
stable for discharge with PO diuretic
Impression / Plan
-
I/P: 64F with breast cancer status post bilateral mastectomy (2011), hypertension, type 2 diabetes mellitus, and former smoker who presented to [facility] on 03/09/2025 with a chief complaint of shortness of breath -> new HFrEF -> cardiac
catheterization with multivessel CAD.
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
Acute HFrEF (LVEF 30-35%): Ischemic vs. mixed cardiomyopathy without significant valve disease
-Improving with IV Lasix. Down >10 kg this admission. Will transition to 40 PO lasix daily today with instructions to check daily weights and call outpatient cardiology if weight increasing.
-GDMT
-SOL/ARB/ARNI: Entresto cost prohibitive. valsartan 80 mg BID
-SGLT2 inhibitor: Cost prohibitive
-Aldosterone agonist: Spironolactone 12.5 mg daily started 03/17
-Beta jonathan: metoprolol succinate 50 mg daily
-Isosorbide/Hydralazine:�Holding for now, labile blood pressure
-ICD: not currently indicated; reassess after GDMT
Coronary artery disease, multivessel, severe
- CT Surgery evaluation: outpatient CABG evaluation
- Angiogram: 60% prox LAD lesion and serial moderate-severe disease in the LCx/RCA; complete revascularization would require VARGHESE-LAD, and additional grafts to distal LCx OM, RPDA, +/- diagonal.
- morbid obesity increases her surgical risk
- TC 176, LDL 118, HDL 32, TG 130, she was started on atorvastatin 80 mg, goal LDL <55
- Continue ASA and statin
NSVT
-like due to underlying cardiomyopathy. Electrolytes WNL, no suggestion of significant ongoing ischemia
-cont. metop 50 mg daily
Type 2 diabetes mellitus
- Controlled, HgbA1c 6.4%
Obesity, BMI 44
- She would benefit from weight loss, affects all aspects of care
- Prior gastric bypass (2004)
- Consider the addition of GLP-1 pending course, coverage
Anemia
- In the setting of depleted iron stores (received Venofer) and B12 deficiency
- Evaluated by hematology at [facility] and here
Dyslipidemia, as above
MONICA with CPAP noncompliance
Prior PE, unclear provoked versus unprovoked as she had breast cancer, self discontinued rivaroxaban in 2019
Breast cancer status post bilateral mastectomy 2011
DATA:
Tele - 11 beat run NSVT, o/w SR
Cardiac catheterization, 03/12/2025 ([facility], Dr. Holley):
Severe triple-vessel CAD with pLAD involvement in a diabetic patient with moderate to severely depressed LVEF.
Ideally target should include LAD, major diagonal branch, large inferior lateral marginal branch, and right coronary PDA.
Physical Exam
Vital Signs/Labs
Vital Signs
Temp Pulse Resp BP Pulse Ox
36.5 C 80 20 122/53 98
03/19/25 07:05 03/19/25 05:00 03/19/25 07:05 03/19/25 03:18 03/19/25 07:05
03/18/25 03/19/25 03/20/25
06:59 06:59 06:59
Actual Weight 105.7 kg 106.1 kg
03/19/25 03:47
03/19/25 03:47
PT 14.1 Sec (11.4-14.6) 03/14/25 04:10
INR 1.06 03/14/25 04:10
APTT 29.4 Sec (23.4-35.0) 03/14/25 04:10
Magnesium 2.0 mg/dl (1.6-2.3) 03/19/25 03:47
Triglycerides 106 mg/dl (10-149) 03/15/25 04:47
LDL Cholesterol, Calc 93 mg/dl 03/15/25 04:47
VLDL Cholesterol, Calc 21 mg/dl (0-30) 03/15/25 04:47
HDL Cholesterol 37 mg/dl 03/15/25 04:47
03/13/25
14:47
Dmr-L-Wnxgeolmapw Pept 03268
Physical Exam
Constitutional: Comfortable
Cardiovascular: Rhythm & rate is regular
Respiratory: Respiratory effort normal
Neuro/Psych: AO x 3
Data Reviewed
-
Date of Service: March 19, 2025
Medical Decision Making: Reviewed Test Results
EKG: Tracing Personally Visualized and interpreted
Labs: Labs Reviewed by me
[2025-03-19] MEDS: NOVOLOG FLEXPEN-LOW RESISTANCE SC ×2 (08:30→11:14)
[2025-03-19] MEDS: VITAMIN B-12 1000 MCG PO (08:31)
[2025-03-19] MEDS: DIOVAN 80 MG PO (08:31)
[2025-03-19] MEDS: TOPROL XL 50 MG PO (08:32)
[2025-03-19] MEDS: VITAMIN D3 (cholecalciferol) 125 MCG PO (08:32)
[2025-03-19] MEDS: ALDACTONE 12.5 MG PO (08:32)
[2025-03-19] MEDS: HEPARIN 5000 UNITS SC (08:32)
[2025-03-19] MEDS: MIRALAX 17 GRAMS PO (08:32)
[2025-03-19] MEDS: ASPIR LOW (ENTERIC COATED) 81 MG PO (08:32)
[2025-03-19] MEDS: COLACE 100 MG PO (08:32)
[2025-03-19] MEDS: VITAMIN C 250 MG PO (08:32)
[2025-03-19] MEDS: LASIX 40 MG PO (08:38)
[2025-03-19] MEDS: LASIX IV (08:40)
[2025-03-19 09:24] VITALS: BP 113/64
[2025-03-19 09:35] VITALS: BP 113/64; PULSE 82; O2SAT 99
--- NOTE | 2025-03-19 10:20 | W.PN.HOSP.TC ---
Today's Communication/Plan
-
discharge
Assessment / Plan
Assessment / Plan
Assessment:
Multivessel Coronary Artery Disease
-Diagnosed on [facility] at [facility]
-Transferred to [place] for CT surgery evaluation for CABG; will have OP office visit to determine future elective surgical option/timing
-got PFT/Carotid us/CT chest as part of pre-op evaluation
-Continue aspirin
Acute Combined Systolic and Diastolic Heart Failure
-cardiology following and help appreciated.
-s/p IV Lasix course; dc on Lasix 40mg daily
-GDMT: ARB/Aldactone/BB
-OP f/u
E. coli Urinary Tract Infection - resolved
-completed 3 day Rocephin course
Hepatitis C Screen Positive
-Attempt to obtain RNA results from [facility]
Diabetes Mellitus, Type II
-Hold oral meds
-HgbA1c of 6.1
-Monitor sugars and continue coverage insulin
Essential Hypertension
-Continue metoprolol
Hyperlipidemia
-Continue atorvastatin
Anemia, patient reports chronic
-Patient received dose of IV Venofer at [facility]. stool check neg in [facility].
-hematology evaluated; provided IV iron
-GI also consulted by CT surg - gi recommended OP EGD/Cscope
Obstructive Sleep Apnea
-Patient reports non-compliance with CPAP - Will need outpatient evaluation
Morbid Obesity due to Excess Calories
-Affects all aspects of care
Hx Pulmonary Embolism, possible provoked in setting of breast cancer
- was recommended Xarelto lifelong in 2011
- Patient reports stopping Xarelto on her own in 2019
Hx Breast Cancer s/p Bilateral Mastectomy 2011
DVT ppx: SC Heparin
Code: Full
Discussed care plan with cardiology 03/19
DC today
More than 30 minutes spent in discharge including
Final examination of the patient
Summarizing hospital stay
Instructions for continuing care to all relevant caregivers
Preparation of discharge records, prescriptions, and referral forms
Total time spent (in minutes): 41
Anticipated Discharge: Today
Subjective/Interval History
-
Date of Service: March 19, 2025
no new complaints at present
Objective Data
-
Labs:
Laboratory Results
03/19/25
03:47
WBC 7.7
Hgb 8.0 L
Hct 26.9 L
Plt Count 296 D
Sodium 134 L
Potassium 4.2
Chloride 99
Carbon Dioxide 27
BUN 25 H
Creatinine 0.8
Glucose 114 H
Calcium 7.3 L
Vital Signs:
Vital Signs
Temp Pulse Resp BP Pulse Ox
97.7 F 86 20 120/42 98
03/19/25 07:05 03/19/25 08:38 03/19/25 07:05 03/19/25 08:38 03/19/25 07:05
I&O
03/18/25 03/19/25 03/20/25
06:59 06:59 06:59
Intake Total 480 / 480 600 / 600
Output Total 1600 / 1600 400 / 400
Balance -1120 / -1120 200 / 200
Physical Exam
-
General: No Apparent Distress
HEENT: Normocephalic and Atraumatic
Respiratory: Negative Wheezes
Cardiac: Regular Rhythm and S1/S2
GI: Soft
Genito-urinary: No Costovertebral Tender
Neuro: AO x 3
Psych: Calm
Data Reviewed
-
Total Time Spent with Patient (in minutes): 42
Labs: Labs Reviewed by me
--- NOTE | 2025-03-19 10:37 | W.DCSUMMARY ---
Discharge Summary
Discharge Data
Date of Admission: 03/12/25
Date of Discharge: 03/19/25
-
Pending Results: No
Hospital Course
64 y/o F, past medical history of hypertension and diabetes mellitus who initially presented to [facility] on March 09 with shortness of breath. She was found to have acute CHF, Echo showed reduced EF. A cardiac cath revealed triple
vessel CAD and she was transferred to for CABG evaluation. She was seen by CT surgery and had pre-op testing and risk assessments and will follow up outpatient for elective surgery.
She was evaluated by [facility] cardiology and treated with IV Lasix. She was transitioned to oral Lasix along with ARB/BB/Aldactone for GDMT.
She had a E. Coli UTI and was treated with Rocephin for 3 days.
She has a history of Gastric Bypass and chronic anemia. Was evaluated by Hematology and GI. They recommended outpatient EGD and Colonoscopy along with supplementing vitamins/minerals (iron, D3, Vit C, B12).
She was discharged home on 03/19 with VN.
She will have repeat labs in 1 week with results sent to PCP.
Discharge Plan
-
Patient Disposition: Home with Home Care
Discharge Diagnosis/Procedures: triple vessel CAD, chronic anemia, UTI, acute CHF requiring IV diuretics
Condition: Fair
Diet: Low Cholesterol, 2 Gram Sodium and Diabetic, Carb Controlled
Activity: As tolerated
Bathing Restrictions: None
Blood Work: CBC and BMP in 1 week - script given
Others Tests: Please obtain Transthoracic Echocardiogram before your follow-up appointment with Dr. Lorelei Trejo on 04/18/25.
>To obtain your echocardiogram, please arrive check-in at the registration desk through the Main Entrance at [facility].
Other Services: VN
Instructions: *PCP/Other [employer] Heart Failure Instructions
Referrals:
Evy Paredes MD [Active, Pulmonary Medicine] - in six weeks
Referral Note: for sleep study to evaluate sleep apnea
Alexia Mora MD [Active, Gastroenterology]
Referral Note: call to schedule outpatient EGD and colonoscopy
Huyen Barnett DO [Family Provider]
Lorelei Trejo MD [Active, Cardiac Surgery] - 04/18/25 10:00 am
Prescriptions:
New
ferrous sulfate [FeroSul] 325 mg (65 mg iron) Tablet
325 mg PO DAILY Qty: 100 0RF
atorvastatin 80 mg Tablet
80 mg PO QPM Qty: 30 1RF
metoprolol succinate 50 mg Tablet Extended Release 24 Hr
50 mg PO DAILY Qty: 30 1RF
valsartan 80 mg Tablet
80 mg PO BID Qty: 60 1RF
aspirin 81 mg Tablet,Delayed Release (/Ec)
81 mg PO DAILY Qty: 100 0RF
spironolactone 25 mg Tablet
12.5 mg PO DAILY Qty: 30 1RF
furosemide 40 mg Tablet
40 mg PO BID AT 0800,1600 Qty: 60 1RF
ascorbic acid (vitamin C) 250 mg Tablet
250 mg PO DAILY Qty: 30 0RF
cholecalciferol (vitamin D3) 125 mcg (5,000 unit) Tablet
125 mcg PO DAILY Qty: 30 0RF
cyanocobalamin (vitamin B-12) 500 mcg Tablet
1,000 mcg PO DAILY Qty: 30 0RF
(DME) Complete Blood count
See Rx Instructions .ROUTE .MEDSUPPLY Qty: 1 0RF
Rx Instructions:
obtain in 1 week - results to PCP (Dr. Barnett)
(DME) basic metabolic panel
See Rx Instructions .ROUTE .MEDSUPPLY Qty: 1 0RF
Rx Instructions:
obtain in 1 week - results to PCP (Dr. Barnett)
Discontinued
diphenhydramine-acetaminophen [Tylenol PM Extra Strength] 25-500 mg Tablet
1 tab PO Q4H PRN (Reason: pain/allergies)
Discharge Orders:
Discharge Patient (As Directed); Ordered 03/19/25
Ordered By: Rosalino Swanson
Care Plan Goals
Care Plan Goals:
Problem: Readiness for enhanced knowledge related to diagnosis and treatment plan
Goal: Understand your diagnosis and treatment plan needs, including medications if applicable.
Instructions: Know your diagnosis, underlying causes and treatment plan options, including medications if applicable. Consult with your health care team to learn about your diagnosis and treatment plan, including medications if applicable.
Discharge Date and Time
Print Language: PORTUGUESE
[2025-03-19 10:51] LABS: Vitamin B1, Whole Blood 113 nmol/L (70-180)
[2025-03-19] MEDS: TUMS CHEWABLE TABLET 400 MG PO (11:46)
[2025-03-19 12:14] VITALS: BP 114/51
[2025-03-19 13:09] LABS: Glucose - Point of Care 178 mg/dl (70-99)
--- NOTE | 2025-03-19 13:55 | CM ---
spoke to pt in room, she is being dc'ed to home today. she does not have anyone to pick her up, cm to arrange a Lyft. pt is coming back for PAT's and CABG in the near future, we discussed she would need to arrange for a ride to and from the hospital
at that time. HR [facility]N referral faxed with PT/OT services as requested by pt. plan is for dc to home today.
[2025-03-19] MEDS: NOVOLOG FLEXPEN-LOW RESISTANCE 1 UNITS SC (14:01)
[2025-03-19] MEDS: FLUZONE HIGH-DOSE 2025-26 0.5 ML IM (14:02)
[2025-03-19] MEDS: FERRLECIT IV (14:03)
--- NOTE | 2025-03-19 15:45 | PTCARENOTE ---
~[id number]: handoff report received from nightshift RN. Pt AOx4, NSR 80s, SBP 120s, RA satting 98%. Pt does not c/o pain at this time. Independent in room. BLE +2 edema. Lasix changed to PO lasix this AM by providers. PT in to work with patient.
All needs met at this time, call pérez within reach.
~[id number]: Pt c/o heartburn, PRN tums given per pt request.
~[id number]: Pt independent in room. DC orders in. Scripts for bloodwork sent to the unit and reviewed with patient during review of DC paperwork. During review patient stated that she did not have a PCP or primary bat boy/girl. XAVI William in room to
inform patient that she could call patient in the morning with list of providers that the patient could call to be established as a patient with a new PCP that works with her insurance. This RN informed her that once she sets up a PCP, she can go
get the bloodwork done and sent to their office and that per Dr. Swanson bloodwork could be done in 2 weeks time to allow for a new PCP to be set up. Patient was frustrated at this knowledge, education and support provided. DC paperwork reviewed with
patient, all questions answered. Patient left with belongings and rolling walker in a scheduled lyft set up by Nataliia HURLEY.
[2025-03-19 16:42] LABS: Carnitine, Esterified 23 umol/L (5-29); Carnitine, Free 36 umol/L (25-60); Carnitine, Total 59 umol/L (34-86)
--- NOTE | 2025-03-19 16:44 | CM ---
pt dc'ed to home with RW. needed LYFT ride.
--- NOTE | 2025-03-20 10:39 | CM ---
Addendum entered by Nataliia Dupree 03/20/25 10:42:
left message for pt to return call- have 3 primary care offices she can call to set up a PCP in her area.
Original Note:
[facility] could not accept pt, referral faxed to [facility]- called pt and left message.
--- NOTE | 2025-03-20 11:13 | W.HF.CON ---
Heart Failure
- LV Function
Left ventricular function study result: LV Ejection fraction </= 35%
Ejection Fraction Percentage: 30-35
- ARNI
Patient already on ARNI: No
Heart Failure ARNI Contraindication: Patient Refusal
- ACEI/ARB
Patient already on ACEI/ARB: Yes
- Beta Yolanda
Patient already on Evidence Based Beta Yolanda: Yes
- Mineralocorticord Receptor Antagonist
Patient already on MRA: Yes
- SGLT-2 Inhibitor
Patient already on SGLT-2 Inhibitor: No
Heart Failure SGLT-2 Inhibitor Contraindication: Patient Refusal
- NYHA CHF Classification
NYHA CHF Classification Level: Class III - Symptoms w/ min exertion, interferes w/ nml daily activity
- ACC/AHA Stage
ACC/AHA Stage: Stage C: Symptomatic Heart Failure
[2025-03-20 14:36] LABS: Gamma-Tocopherol 1.2 mg/L (0.0-6.0); Retinyl Palmitate <0.02 mg/L (0.00-0.10)
== END 2025-03-19 16:50 | disposition home health service (06) | DRG 302 ==
LOC: IVU 18:36
PROVIDERS: Clinical Nurse Specialist Acute Care; Internal Medicine; Physician Assistant Medical; ADMITTING PHYSICIAN Hospitalist; ATTENDING PHYSICIAN Internal Medicine; CONSULT PHYSICIAN Internal Medicine; CONSULT PHYSICIAN Internal Medicine Gastroenterology; CONSULT PHYSICIAN Student in an Organized Health Care Education/Training Program; FAMILY PHYSICIAN Internal Medicine; OTHER PHYSICIAN Internal Medicine Cardiovascular Disease; OTHER PHYSICIAN Internal Medicine Hematology & Oncology
DX: I25.10 Atherosclerotic heart disease of native coronary artery without angina pectoris (principal); I50.23 Acute on chronic systolic (congestive) heart failure; E87.1 Hypo-osmolality and hyponatremia; J98.11 Atelectasis; N39.0 Urinary tract infection, site not specified; Z68.41 Body mass index [BMI] 40.0-44.9, adult; I47.20 Ventricular tachycardia, unspecified; I11.0 Hypertensive heart disease with heart failure; B96.20 Unspecified Escherichia coli [E. coli] as the cause of diseases classified elsewhere; B19.20 Unspecified viral hepatitis C without hepatic coma; E11.9 Type 2 diabetes mellitus without complications; G47.33 Obstructive sleep apnea (adult) (pediatric); E66.01 Morbid (severe) obesity due to excess calories; J45.20 Mild intermittent asthma, uncomplicated; J98.4 Other disorders of lung; R06.89 Other abnormalities of breathing; D50.9 Iron deficiency anemia, unspecified; E88.09 Other disorders of plasma-protein metabolism, not elsewhere classified; E78.5 Hyperlipidemia, unspecified; E53.8 Deficiency of other specified B group vitamins; F10.10 Alcohol abuse, uncomplicated; K21.9 Gastro-esophageal reflux disease without esophagitis; K59.00 Constipation, unspecified; R13.10 Dysphagia, unspecified; Z79.899 Other long term (current) drug therapy; Z86.711 Personal history of pulmonary embolism; Z87.891 Personal history of nicotine dependence; Z91.199 Patient's noncompliance with other medical treatment and regimen due to unspecified reason
CPT/HCPCS: 71250; 80048; 80053; 80061; 82040; 82248; 82306; 82379; 82525; 82607; 82728; 82746; 82805; 82962; 83036; 83540; 83550; 83735; 83880; 84134; 84425; 84446; 84484; 84590; 84630; 85027; 85610; 85730; 86850; 86900; 86901; 87070; 90662; 93005; 93306; 93880; 93970; 94060; 94640; 94727; 94729; 94762; 97116; 97162; G0008; J2916